=== PATIENT | female | born 1955 | race Caucasian/White ===

== ENCOUNTER 2019-11-01 10:59 | Outpatient (CLI) | payer MEDICARE, MEDICAID, SELFPAY ==
--- NOTE | 2019-11-01 11:28 | XR_ITS ---
WS: [id number] EXAM: LEFT KNEE: 3 VIEWS DATE OF EXAMINATION: 11/01/2019, 1205 hours COMPARISON: None. HISTORY: Patient is 64 years old with knee pain. FINDINGS: Bone density is normal in appearance. No fracture, lytic or blastic process is seen. Minimal enthesop athy reaction at the level of the patellar insertion on the quadriceps tendon superiorly. No joint ef fusion. Extra articular soft tissues are unremarkable. XR/XR knee LT 3V* [id number] IMPRESSION: No acute abnormality. No appreciable arthritis other than enthesopathy reaction at the level of the patellar insertion in the quadriceps tendon.
--- NOTE | 2019-11-01 11:28 | XR_ITS ---
WS: [id number] EXAM: LEFT ELBOW: 3 VIEWS DATE OF EXAMINATION: 11/01/2019, 1202 hours COMPARISON: None. HISTORY: Patient is 64 years old with elbow pain. FINDINGS: Osseous, joint and surrounding soft tissues are unremarkable. If there is concern for tendon or ligam entous abnormality MRI would be the imaging modality of choice for evaluation. XR/XR elbow LT min 3V* [id number] IMPRESSION: Negative plain films of the left elbow.
== END 2019-11-01 11:00 | disposition home or self-care (01) ==
LOC: RADWPI 11:08
PROVIDERS: PCP Nurse Practitioner Family; Visit Provider Nurse Practitioner Family
DX: M25.562 Pain in left knee (principal); M25.522 Pain in left elbow
CPT/HCPCS: 73080; 73562

== ENCOUNTER 2020-05-23 07:32 | Outpatient (CLI) | payer MEDICARE, MEDICAID, SELFPAY ==
--- NOTE | 2020-05-23 07:55 | US_ITS ---
WS: [id number] ULTRASOUND ABDOMEN LIMITED CLINICAL INFORMATION: ELEVATED LIVER FUNCTION TEST COMPARISON: None. FINDINGS: Liver Size: Enlarged Craniocaudal length: 19.8 cm. Echogenicity: Coarse echogenicity Surface nodularity: None. Mass (size and location): None. Bile ducts Intrahepatic ducts: Normal. Common bile duct diameter: 0.7 cm. Gallbladder Cholecystectomy. Pancreas Not well visualized Right kidney: Normal. Hydronephrosis: None. Size: 12.1 cm x 3.9 cm x 5.5 cm. Abdominal aorta and IVC Visualized portions are normal. Ascites: None. US/US abdomen limited [id number] IMPRESSION: 1. Hepatomegaly with mild diffuse fatty infiltration. No intrahepatic biliary ductal dilatation. 2. Prior cholecystectomy. 3. Normal common bile duct. 4. No hydronephrosis in right kidney.
--- NOTE | 2020-05-23 08:52 | XR_ITS ---
WS: [id number] DEXA (DUAL ENERGY X-RAY ABSORPTIOMETRY) Bone mineral density was performed using a [employer] machine. HISTORY: SCREENING FOR OSTEOPOROSIS, POSTMENOPAUSAL COMPARISON: None available. Lumbar spine BMD (L1-L4): 0.969 g/cm2 T score: -1.8 Z score: -1.3 Total hip BMD: Left: 0.916 g/cm2. T score: -0.7 Z score: -0.3 Right: 0.903 g/cm2. T score: -0.8 Z score: -0.4 10 year probability of a major osteoporotic fracture is 16%. XR/XR DEXA axial skeleton* [id number] IMPRESSION: OSTEOPENIA based upon the WHO classification for females.
== END 2020-05-23 07:33 | disposition home or self-care (01) ==
PROVIDERS: PCP Nurse Practitioner Family; Visit Provider Nurse Practitioner Family
DX: Z13.820 Encounter for screening for osteoporosis (principal); R94.5 Abnormal results of liver function studies; M85.88 Other specified disorders of bone density and structure, other site; Z90.49 Acquired absence of other specified parts of digestive tract; R16.0 Hepatomegaly, not elsewhere classified; K76.0 Fatty (change of) liver, not elsewhere classified
CPT/HCPCS: 76705; 77080

== ENCOUNTER 2020-06-06 08:57 | Outpatient (CLI) | payer MEDICARE, MEDICAID, SELFPAY ==
--- NOTE | 2020-06-06 09:01 | MM_ITS ---
WS: [id number] BILATERAL DIGITAL SCREENING MAMMOGRAM WITH CAD CLINICAL INFORMATION: SCREENING HISTORY: Screening mammogram. No current complaints. COMPARISON: TECHNIQUE: Bilateral CC and MLO views. FINDINGS: Fatty-replaced breasts bilaterally. No suspicious focal mass, asymmetry, calcifications, or storage architect ural distortion. No evidence of malignancy. MM/[place] [id number] IMPRESSION: BI-RADS: 1-Negative FOLLOW UP: 1 Year Follow-up Recommend return to annual screening mammography.
== END 2020-06-06 08:58 | disposition home or self-care (01) ==
LOC: RADSHAW 08:58
PROVIDERS: PCP Nurse Practitioner Family; Visit Provider Nurse Practitioner Family
DX: Z12.31 Encounter for screening mammogram for malignant neoplasm of breast (principal)
CPT/HCPCS: 77067

== ENCOUNTER 2021-07-10 06:26 | Day surgery (SDC) | payer MEDICARE, MEDICAID, SELFPAY ==
[2021-07-08 11:09] VITALS: BMI 34.4
[2021-07-10 06:48] VITALS: BP 136/90; PULSE 94; RESP 18; TEMP 36.1; O2SAT 96
--- NOTE | 2021-07-10 07:03 | W.PM.OPSFHP ---
Same Day Surgery H&P Indication for Procedure/HPI DATE OF PROCEDURE: July 10, 2021 CHIEF COMPLAINT/INDICATIONFOR SURGICAL PROCEDURE: Occult blood in stool PREOP DIAGNOSIS: Family history of colon cancer and occult blood in stool PLANNED PROCEDURE: Operation Date: 07/10/21 08:00 Proposed Procedures p Colonoscopy 04175/screen for colon cancer Z12.11(Not Applicable) - Norm Mills MD 11/27/2020 This is a pleasant 65 years old female patient reports that she was found to have occult blood positive in stool and was referred to my practice to discuss colonoscopy.? Patient reports that she had a previous colonoscopy 8 years ago but she does not recall when exactly.? Denies any beena bleeding per rectum and she reports that she had an uncle with colon cancer history but she does not know at what age group that he had developed It. 07/10/2021 Patient comes today for colonoscopy. ROS All systems of all systems have been reviewed negative except as per the above or per problem list Medications/Allergies* Home Medications Medication Instructions Recorded Confirmed Type amlodipine 5 mg tablet 5 mg PO DAILY 11/05/20 07/10/21 History atorvastatin 10 mg tablet 10 mg PO DAILY 11/05/20 07/10/21 History baclofen 10 mg tablet 10 mg PO DAILY 11/05/20 07/10/21 History hydrochlorothiazide 25 mg tablet 25 mg PO DAILY 11/05/20 07/10/21 History insulin glargine 100 unit/mL (3 40 unit SUBCUT BEDTIME 11/05/20 07/10/21 History mL) subcutaneous pen (Lantus Solostar U-100 Insulin) levothyroxine 75 mcg capsule 75 mcg PO DAILY 11/05/20 07/10/21 History lisinopril 40 mg tablet 40 mg PO DAILY 11/05/20 07/10/21 History montelukast 10 mg tablet 10 mg PO DAILY 11/05/20 07/10/21 History mupirocin calcium 2 % topical cream 1 applic TOPICAL BID 11/05/20 07/10/21 History solifenacin 10 mg tablet 10 mg PO DAILY 11/05/20 07/10/21 History triamcinolone acetonide 0.1 % 1 applic TOPICAL DAILY 11/05/20 07/10/21 History topical cream venlafaxine 75 mg tablet 75 mg PO DAILY 11/05/20 07/10/21 History metformin 1,000 mg tablet 1,000 mg PO DAILY 11/27/20 07/10/21 History albuterol sulfate 90 mcg/actuation 2 puff INHALATION QID PRN 01/12/21 07/10/21 History aerosol inhaler alendronate 35 mg tablet 35 mg PO DIRECTED 01/12/21 07/10/21 History aspirin 81 mg tablet,delayed 81 mg PO DAILY 01/12/21 07/10/21 History release cetirizine 10 mg tablet (Zyrtec) 10 mg PO DAILY 01/12/21 07/10/21 History cholecalciferol (vitamin D3) 50 50 mcg PO DAILY 01/12/21 07/10/21 History mcg (2,000 unit) capsule (Vitamin D3) coenzyme Q10 100 mg capsule 100 mg PO DAILY 01/12/21 07/10/21 History (CoQ-10) exenatide microspheres 2 mg/0.85 2 mg SUBCUT DIRECTED 01/12/21 07/10/21 History mL subcutaneous auto-injector (Florentin Schmitz) folic acid 0.8 mg capsule 0.8 mg PO DAILY 01/12/21 07/10/21 History multivitamin 1 cap PO BEDTIME 01/12/21 07/10/21 History omega-3 fatty acids 2,000 mg PO DAILY 01/12/21 07/10/21 History omeprazole 20 mg capsule,delayed 40 mg PO DAILY 01/12/21 07/10/21 History release potassium 99 mg tablet 99 mg PO DAILY 01/12/21 07/10/21 History Allergies/Adverse Reactions Allergy/AdvReac Type Severity Reaction Status Date / Time alprazolam [From Xanax] Allergy Mild BLOATING Verified 07/10/21 07:05 bacitracin Allergy hives Verified 07/10/21 07:05 [From Triple Antibiotic] codeine Allergy esophagus Verified 07/10/21 07:05 muscle spasm morphine Allergy unk Verified 07/10/21 07:05 neomycin Allergy hives Verified 07/10/21 07:05 [From Triple Antibiotic] polymyxin B Allergy hives Verified 07/10/21 07:05 [From Triple Antibiotic] Pertinent History/Comorbid Conditions* Medical History (Updated 11/28/20 @ 12:50 by Norm Mills MD) Depression HTN (hypertension) Hyperlipidemia Social History History of recent travel: No Pertinent Exam Findings alert, oriented x 3, regular rate & rhythm and procedure specific exam findings (Abdominal exam nontender nondistended soft) Recommendations Surgery/Procedure today (colonoscopy with possible biopsy) Coding Level of Care Code Acute Investment Specialist for Susi Gann
[2021-07-10] MEDS: sodium chloride 0.9% 1,000 ML 30 ML IV (07:11)
--- NOTE | 2021-07-10 07:29 | ANES.PREANE2 ---
Pre-Anesthetic Assessment Height/Weight: Height 1.7 m Weight 99.79 kg Temp Pulse Resp BP Pulse Ox 97.0 F L 94 18 136/90 96 07/10/21 06:48 07/10/21 06:48 07/10/21 06:48 07/10/21 06:48 07/10/21 06:48 Preop Diagnosis: Family history of colon cancer and occult blood in stool Operation Date: 07/10/21 08:00 Proposed Procedures p Colonoscopy 61636/screen for colon cancer Z12.11(Not Applicable) - Norm Mills MD Familial anesthetic complications: None Was Beta Amalia taken within 24 hours: N/A Was Clonidine taken within 24 hours: N/A Last intake: Intake Last Liquid Date 07/10/21 Last Liquid Time 06:30 Last Solid Date 07/08/21 Last Solid Time 18:00 Social No alcohol and No tobacco Exam alert, oriented x 3, clear to auscultation bilaterally and regular rate & rhythm Airway Mallampati: Class I Dentition: full Pulmonary None reported CV/HEM Hypertension None reported Hepatic None reported GI Gastroesophageal Reflux Disease Metabolic Diabetes Mellitus, Hyperlipidemia and Morbid Obesity [facility] None reported Neuropsych None reported Anesthetic Plan ASA status: 3 Anesthesia: MAC Risk of > 500 ml blood loss (7ml/kg in children): No Medications/Allergies Home Medications Medication Instructions Recorded Confirmed Last Taken Type amlodipine 5 mg tablet 5 mg PO DAILY 11/05/20 07/10/21 07/09/21 History ammonium lactate 12 % lotion 1 applic TOPICAL DAILY #400 g 11/05/20 07/10/21 07/09/21 Rx atorvastatin 10 mg tablet 10 mg PO DAILY 11/05/20 07/10/21 07/09/21 History baclofen 10 mg tablet 10 mg PO DAILY 11/05/20 07/10/21 07/09/21 History hydrochlorothiazide 25 mg tablet 25 mg PO DAILY 11/05/20 07/10/21 07/09/21 History insulin glargine 100 unit/mL (3 40 unit SUBCUT BEDTIME 11/05/20 07/10/21 07/09/21 History mL) subcutaneous pen (Lantus Solostar U-100 Insulin) ketoconazole 2 % shampoo 1 applic TOPICAL .2 x weekly #120 11/05/20 07/10/21 1 Week Ago Rx ml ~07/03/21 levothyroxine 75 mcg capsule 75 mcg PO DAILY 11/05/20 07/10/21 07/09/21 History lisinopril 40 mg tablet 40 mg PO DAILY 11/05/20 07/10/21 07/09/21 History montelukast 10 mg tablet 10 mg PO DAILY 11/05/20 07/10/21 07/09/21 History mupirocin calcium 2 % topical cream 1 applic TOPICAL BID 11/05/20 07/10/21 07/09/21 History solifenacin 10 mg tablet 10 mg PO DAILY 11/05/20 07/10/21 07/09/21 History triamcinolone acetonide 0.1 % 1 applic TOPICAL DAILY 11/05/20 07/10/21 07/09/21 History topical cream venlafaxine 75 mg tablet 75 mg PO DAILY 11/05/20 07/10/21 07/09/21 History metformin 1,000 mg tablet 1,000 mg PO DAILY 11/27/20 07/10/21 07/09/21 History albuterol sulfate 90 mcg/actuation 2 puff INHALATION QID PRN 01/12/21 07/10/21 1 Month Ago History aerosol inhaler ~06/09/21 alendronate 35 mg tablet 35 mg PO DIRECTED 01/12/21 07/10/21 07/08/21 History aspirin 81 mg tablet,delayed 81 mg PO DAILY 01/12/21 07/10/21 07/09/21 History release cetirizine 10 mg tablet (Zyrtec) 10 mg PO DAILY 01/12/21 07/10/21 07/09/21 History cholecalciferol (vitamin D3) 50 50 mcg PO DAILY 01/12/21 07/10/21 07/09/21 History mcg (2,000 unit) capsule (Vitamin D3) coenzyme Q10 100 mg capsule 100 mg PO DAILY 01/12/21 07/10/21 07/09/21 History (CoQ-10) exenatide microspheres 2 mg/0.85 2 mg SUBCUT DIRECTED 01/12/21 07/10/21 1 Week Ago History mL subcutaneous auto-injector ~07/03/21 (Florentin Schmitz) folic acid 0.8 mg capsule 0.8 mg PO DAILY 01/12/21 07/10/2122 History multivitamin 1 cap PO BEDTIME 01/12/21 07/10/21 07/09/21 History omega-3 fatty acids 2,000 mg PO DAILY 01/12/21 07/10/21 07/09/21 History omeprazole 20 mg capsule,delayed 40 mg PO DAILY 01/12/21 07/10/21 07/09/21 History release potassium 99 mg tablet 99 mg PO DAILY 01/12/21 07/10/21 07/09/21 History lactulose 10 gram/15 mL (15 mL) 15 ml PO BID 7 Days #210 ml 02/20/21 07/10/21 07/09/21 Rx oral solution Allergies Allergy/AdvReac Type Severity Reaction Status Date / Time alprazolam [From Xanax] Allergy Mild BLOATING Verified 07/10/21 07:05 bacitracin Allergy hives Verified 07/10/21 07:05 [From Triple Antibiotic] codeine Allergy esophagus Verified 07/10/21 07:05 muscle spasm morphine Allergy unk Verified 07/10/21 07:05 neomycin Allergy hives Verified 07/10/21 07:05 [From Triple Antibiotic] polymyxin B Allergy hives Verified 07/10/21 07:05 [From Triple Antibiotic] Current Medications Generic Name Dose Route Start Last Admin Trade Name Freq PRN Reason Stop Dose Admin Sodium Chloride 1,000 mls @ 30 mls/hr 07/10/21 06:30 07/10/21 07:11 Sodium Chloride 0.9% IV 30 mls/hr .Q24H ZACHARIAH Administration PFSH Anesthesia Medical History Depression HTN (hypertension) Hyperlipidemia Social History History of recent travel: No Data Anesthesia Cardiac Studies: No Data to Display
[2021-07-10 09:49] VITALS: BP 93/66; PULSE 73; RESP 20; TEMP 36.1; O2SAT 93
[2021-07-10 09:57] VITALS: BP 106/74; PULSE 73; RESP 18; O2SAT 99
--- NOTE | 2021-07-10 15:56 | ANE.PACU2 ---
Inpatient post-anesthesia follow up: Airway intact: Yes Vital signs: Temperature 97 F Pulse Rate 73 Respiratory Rate 18 Blood Pressure 106/74 Pulse Oximetry 99 Oxygen Delivery Me thod Room Air Oxygen Flow Rate Fraction of Inspir ed Oxygen Hydration adequate: Yes Nausea and vomiting: No Pain level: 1 Mental status: Baseline
== END 2021-07-10 10:10 | disposition home or self-care (01) ==
PROVIDERS: Visit Provider Surgery
PROC: 0DJD8ZZ Inspection of Lower Intestinal Tract, Via Natural or Artificial Opening Endoscopic (ICD-10-PCS; CPT 45330; 2021-07-10 08:00)
DX: R19.5 Other fecal abnormalities (principal); K56.41 Fecal impaction; Z80.0 Family history of malignant neoplasm of digestive organs; Z79.82 Long term (current) use of aspirin; Z79.4 Long term (current) use of insulin; F32.9 Major depressive disorder, single episode, unspecified; I10 Essential (primary) hypertension; E78.5 Hyperlipidemia, unspecified; K21.9 Gastro-esophageal reflux disease without esophagitis; E11.9 Type 2 diabetes mellitus without complications; E66.01 Morbid (severe) obesity due to excess calories; Z68.34 Body mass index [BMI] 34.0-34.9, adult
CPT/HCPCS: 45330; J2704; J7030

== ENCOUNTER 2022-12-06 14:03 | Outpatient (CLI) | payer MEDICARE, MEDICAID, SELFPAY ==
--- NOTE | 2022-12-06 14:13 | MM_ITS ---
WS: [id number] BILATERAL 3D TOMOSYNTHESIS DIGITAL SCREENING MAMMOGRAPHY WITH CAD CLINICAL INFORMATION: SCREENING HISTORY: Screening mammogram. No current complaints. COMPARISON: 2020 TECHNIQUE: Bilateral CC and MLO views. FINDINGS: Scattered fibroglandular densities bilaterally. No suspicious focal mass, asymmetry, calcifications, or architectural distortion. No evidence of malignancy. IMPRESSION: MM/[place] [id number] BI-RADS: 1-Negative FOLLOW UP: 1 Year Follow-up Recommend return to annual screening mammography.
--- NOTE | 2022-12-06 14:14 | CT_ITS ---
WS: [id number] CT ABDOMEN AND PELVIS NONCONTRAST HISTORY: ABDOMINAL PAIN TECHNIQUE: Imaging performed through the abdomen and pelvis. Coronal and sagittal reformats are submi tted. All CT scans at [facility] use at least one of these dose optimization techniques: auto mated exposure control; mA and/or kV adjustment per patient size (includes targeted exams where dose is matched to clinical indication); or iterative reconstruction. DLP: 722.73 mGy.cm COMPARISON: 03/29/2018 Lower thorax: Lung bases are clear. Visualized heart is normal. No hiatal hernia. Liver: Mildly enlarged liver. Area of decreased attenuation in the LEFT lobe of the liver with ill-de fined margins measures 4.8 x 4.8 cm. The remaining liver is negative. No intrahepatic dilatation. Gallbladder: Prior cholecystectomy. Pancreas: Normal size and attenuation. Normal pancreatic duct. No pancreatitis or mass. Spleen: Normal size with granulomata. Adrenal glands: Normal. No mass. Right kidney: 5 mm exophytic nodule from the superior lateral RIGHT kidney. Not significantly changed since the prior exam. No obstruction or calcifications. Left kidney: Normal size kidney with no mass or hydronephrosis. Aorta: Mild atherosclerosis abdominal aorta with no aneurysm. No free fluid or free air. There are several small lymph nodes in the mesentery of the upper abdomen adjacent to the transverse colon and hepatic flexure. GI tract: Soft tissue mass with circumferential thickening involving the proximal transverse colon. T here is a focal stricture extending over a length of 8 cm with moderate narrowing of the lumen. Adjac ent lymph nodes within the pericolonic fat. This is consistent with a neoplasm until proven otherwise . Diffuse colonic constipation. Constipation is both proximal and distal to the transverse colon stri cture. Abdominal wall: Negative. No hernia. Pelvis: Prior hysterectomy. No free fluid. Osseous structures: Stable lytic area LEFT ilium. IMPRESSION: 1. Circumferential mass in the proximal transverse colon with stricture. Most consistent with coloni c neoplasm until proven otherwise. Recommend colonoscopy. 2. Pericolonic inflammation and soft tissue infiltration surrounding the mass in the proximal transv erse colon suspect metastatic adenopathy. 3. Low-attenuation mass in the LEFT lobe of the liver measures 4.8 x 4.8 cm. Highly suspicious for m etastatic disease to the liver. 4. Diffuse colonic constipation. 5. Recommend colonoscopy and follow-up CT abdomen and pelvis with IV contrast. PET/CT would also be of benefit at this time. Notified Lanny Pitts NP at 12/07/2022 8:00 AM.
[2022-12-06] MEDS: iohexol 350 mg/mL 500 mL Btl (per mL) PO (15:09)
== END 2022-12-06 14:04 | disposition home or self-care (01) ==
PROVIDERS: PCP Nurse Practitioner Family; Visit Provider Nurse Practitioner Family
DX: Z12.31 Encounter for screening mammogram for malignant neoplasm of breast (principal); R10.9 Unspecified abdominal pain; D50.9 Iron deficiency anemia, unspecified; R11.0 Nausea
CPT/HCPCS: 74176; 77063; 77067; Q9967

== ENCOUNTER → 2023-02-22 08:01 | Outpatient (BNVA) | payer MEDICARE, MEDICAID, SELFPAY | PROVIDERS: PCP Nurse Practitioner Family; Visit Provider Surgery | DX: Z95.828 Presence of other vascular implants and grafts (principal) | CPT/HCPCS: 99204 ==

== ENCOUNTER 2023-02-25 09:44 | Day surgery (SDC) | payer MEDICARE, MEDICAID, SELFPAY ==
[2023-02-25] VITALS (7 sets, daily range): BP systolic 97–123; BP diastolic 59–70; PULSE 87–91; RESP 16–18; TEMP 36.1–36.6; O2SAT 93–99; BMI 29.5
--- NOTE | 2023-02-25 09:54 | SC_ITS ---
WS: [id number] C-arm fluoroscopy for infusion port placement, 02/25/2023 Clinical Data: for port-a-cath Comparison: AP chest, 03/29/2018 Findings: Dr. Jean inserted an infusion port via the right internal jugular vein. The port ends in the mi d superior vena cava. Impression: Insertion of right infusion catheter.
[2023-02-25 10:45] LABS: Glucose Point of Care 193 mg/dL (70-110)
--- NOTE | 2023-02-25 10:47 | ANES.PREANE2 ---
Pre-Anesthetic Assessment Height/Weight: Height 1.73 m Temp Pulse Resp BP Pulse Ox O2 Del Method 97.9 F 89 18 97/70 98 Room Air 02/25/23 10:20 02/25/23 10:20 02/25/23 10:20 02/25/23 10:20 02/25/23 10:20 02/25/23 10:22 Operation Date: 02/25/23 12:00 Proposed Procedures p 42898:Portacath Placement,C18.9(Not Applicable) - Nasir Jean MD Familial anesthetic complications: None Was Beta Amalia taken within 24 hours: N/A Was Clonidine taken within 24 hours: N/A Last intake: Intake Last Liquid Date 02/24/23 Last Liquid Time 20:00 Last Solid Date 02/24/23 Last Solid Time 20:00 Social No alcohol and No tobacco Exam alert, oriented x 3, clear to auscultation bilaterally and regular rate & rhythm Airway Mallampati: Class II Dentition: false CV/HEM Hypertension GI Gastroesophageal Reflux Disease Metabolic Diabetes Mellitus, Hyperlipidemia, Morbid Obesity and Thyroid Disease Anesthetic Plan ASA status: 3 Anesthesia: MAC Risk of > 500 ml blood loss (7ml/kg in children): No Medications/Allergies Home Medications Medication Instructions Recorded Confirmed Last Taken Type amlodipine 5 mg tablet 5 mg PO DAILY 11/05/20 02/24/23 02/24/23 History ammonium lactate 12 % lotion 1 applic topical DAILY #400 grams 11/05/20 02/24/23 07/09/21 Rx atorvastatin 10 mg tablet 10 mg PO DAILY 11/05/20 02/24/23 02/25/23 08:30 History hydrochlorothiazide 25 mg tablet 25 mg PO DAILY 11/05/20 02/24/23 02/25/23 08:30 History insulin glargine 100 unit/mL (3 40 unit SUBCUT BEDTIME 11/05/20 02/24/23 02/25/23 08:30 History mL) subcutaneous pen (Lantus Solostar U-100 Insulin) ketoconazole 2 % shampoo 1 applic topical .2 x weekly #120 11/05/20 02/24/23 1 Week Ago Rx mL ~07/03/21 levothyroxine 75 mcg capsule 75 mcg PO DAILY 11/05/20 02/24/23 02/24/23 History lisinopril 40 mg tablet 40 mg PO DAILY 11/05/20 02/24/23 02/24/23 History montelukast 10 mg tablet 10 mg PO DAILY 11/05/20 02/24/23 02/24/23 20:00 History mupirocin calcium 2 % topical cream 1 applic topical BID 11/05/20 02/24/23 07/09/21 History solifenacin 10 mg tablet 10 mg PO DAILY 11/05/20 02/24/23 02/25/23 08:30 History triamcinolone acetonide 0.1 % 1 applic topical DAILY 11/05/20 02/24/23 02/24/23 History topical cream albuterol sulfate 90 mcg/actuation 2 puff inhalation QID PRN 01/12/21 02/25/23 01/20/23 History aerosol inhaler Shortness Of Breath alendronate 35 mg tablet 35 mg PO DIRECTED 01/12/21 02/25/23 02/11/23 History aspirin 81 mg tablet,delayed 81 mg PO DAILY 01/12/21 02/24/23 02/24/23 History release cetirizine 10 mg tablet (Zyrtec) 10 mg PO DAILY 01/12/21 02/24/23 02/25/23 08:30 History cholecalciferol (vitamin D3) 50 50 mcg PO DAILY 01/12/21 02/24/23 02/25/23 08:30 History mcg (2,000 unit) capsule (Vitamin D3) coenzyme Q10 100 mg capsule 100 mg PO DAILY 01/12/21 02/24/23 02/25/23 08:30 History (CoQ-10) exenatide microspheres 2 mg/0.85 2 mg SUBCUT DIRECTED 01/12/21 02/25/23 02/11/23 History mL subcutaneous auto-injector (Florentin Schmitz) folic acid 0.8 mg capsule 0.8 mg PO DAILY 01/12/21 02/24/23 02/25/23 08:30 History multivitamin 1 cap PO BEDTIME 01/12/21 02/24/23 02/23/23 History omega-3 fatty acids 2,000 mg PO DAILY 01/12/21 02/24/23 02/24/23 History potassium 99 mg tablet 99 mg PO DAILY 01/12/21 02/24/23 02/25/23 08:30 History Freestyle Kit Sensor 02/15/23 02/22/23 Unknown History fluticasone propionate 50 1 spray intranasal BID 02/15/23 02/25/23 02/11/23 History mcg/actuation nasal spray,suspension (Allergy Relief (fluticasone)) magnesium oxide 250 mg PO DAILY 02/15/23 02/24/23 Unknown History omeprazole 20 mg capsule,delayed 40 mg PO BID 02/15/23 02/24/23 02/25/23 08:30 History release sitagliptin phosphate 25 mg tablet 25 mg PO DAILY 02/15/23 02/24/23 02/25/23 08:30 History (Januvia) venlafaxine 75 mg tablet 150 mg PO DAILY 02/15/23 02/24/23 02/25/23 08:30 History Allergies Allergy/AdvReac Type Severity Reaction Status Date / Time nitrofurantoin Allergy Severe ALGY-Rash Verified 02/22/23 08:08 [From Macrobid] alprazolam [From Xanax] Allergy Mild BLOATING Verified 02/22/23 08:08 bacitracin Allergy hives Verified 02/22/23 08:08 [From Triple Antibiotic] codeine Allergy esophagus Verified 02/22/23 08:08 muscle spasm morphine Allergy unk Verified 02/22/23 08:08 neomycin Allergy hives Verified 02/22/23 08:08 [From Triple Antibiotic] polymyxin B Allergy hives Verified 02/22/23 08:08 [From Triple Antibiotic] [facility] Anesthesia Medical History (Updated 02/15/23 @ 09:12 by iFnesse Bundy MD) Metastatic colon cancer to liver Hyperlipidemia HTN (hypertension) Depression Family History (Updated 12/23/22 @ 11:41 by Juliane Villarreal) Denies family history of Colon cancer Ovarian cancer Diabetes Heart disease Hyperlipidemia Breast cancer Hypertension Uterine cancer Thyroid disease Stroke Social History (Updated 02/15/23 @ 09:15 by Jaskaran Nolasco) Smoking and tobacco/nicotine status: never used tobacco/nicotine Quit status (tobacco/nicotine): has quit using Year quit tobacco: 2002 Former quit date comment: smoked 30 years Data Anesthesia Cardiac Studies: No Data to Display
--- NOTE | 2023-02-25 10:48 | P.HPUD_ITS ---
Surgery/Procedure H&P Update DATE OF PROCEDURE: February 25, 2023 DATE H&P PERFORMED: 02/22/23 H&P UPDATE INFORMATION: I have reviewed H&P completed within last 30 days, I have examined patient prior to procedure, No changes to prior documentation and H&P is in [facility] EMR on date indicated PLANNED PROCEDURE: Operation Date: 02/25/23 12:00 Proposed Procedures p 30531:Portacath Placement,C18.9(Not Applicable) - Nasir Jean MD
--- NOTE | 2023-02-25 10:48 | W.PM.OPSUD ---
Surgery/Procedure H&P Update DATE OF PROCEDURE: February 25, 2023 DATE H&P PERFORMED: 02/22/23 H&P UPDATE INFORMATION: I have reviewed H&P completed within last 30 days, I have examined patient prior to procedure, No changes to prior documentation and H&P is in [facility] EMR on date indicated PLANNED PROCEDURE: Operation Date: 02/25/23 12:00 Proposed Procedures p 13854:Portacath Placement,C18.9(Not Applicable) - Nasir Jean MD
[2023-02-25] MEDS: sodium chloride 0.9% 1,000 ML 30 ML IV (10:59)
[2023-02-25] MEDS: ceFAZolin 2,000 MG in sodium chloride 0.9% (plus) 50 ML 100 MG IV (11:05)
[2023-02-25] MEDS: lidocaine-epi 1% 20 mL INJ INJECTION (11:26)
[2023-02-25] MEDS: heparin, porcine 1,000 unit/mL INJ 10 mL 10000 UNIT IRRIGATION (11:27)
--- NOTE | 2023-02-25 11:47 | PM.OP ---
Operative Report Date of procedure: February 25, 2023 Pre-op diagnosis: Colon cancer Post-op diagnosis: Same Post-op findings: Normal vascular anatomy Procedure done: Insertion of Port-A-Cath Implants: Bard Port-A-Cath Surgeon: Nasir Jean MD [employer] Lieutenant: LORNA OR STaff Estimated blood loss: 5 Complications: None Brief History: 67-year-old female with history of metastatic colon cancer s/p resection patient will require Port-A-Cath for chemotherapy. After discussing all the risk and benefits as documented in my preop note we have decided to proceed with Port-A-Cath placement. Procedure: The patient was brought into the OR, she was placed in the supine position. Moderate anesthesia sedation was given. The right side of the neck and chest was prepped and draped in the usual sterile fashion. Timeout was conducted. The right IJ vein was identified with ultrasound local anesthesia was infiltrated on top of the vein. I then proceeded to cannulate the vein with a 18-gauge needle the needle tip was seen entering the vein under ultrasound visualization, after that I proceeded to advance a wire through the needle and the needle was removed. The position of the wire was verified with both ultrasound and fluoroscopy. There was a wire was then clamped to the drapes and I placed my attention to the chest where I made a 3.5 cm incision on the upper chest, the incision was deepened to subcutaneous tissue and a subcutaneous pocket was then created to accommodate the Port-A-Cath. I made a 0.5 cm incisions on the neck at the level of the wire insertion site. I then used a hemostat to create a tunnel between the chest and neck wounds, the Port-A-Cath was placed in the pocket and the tunneler provided was used to tunneled the catheter from the chest to the neck wound. Under direct fluoroscopy guidance I then advanced introducer and peel-off sheath over the wire, the introducer and wire were subsequently removed. The catheter was advanced through the peel-off sheath and the peel-off sheath was removed leaving the catheter in place. Fluoroscopy showed successful placement of the Port-A-Cath. I then proceeded to test for blood return and flushing, the Port-A-Cath was noted to be working well and then I hep-locked the catheter. Hemostasis was verified. The wounds were closed in layers using #3-0 Vicryl for the subcutaneous tissue and #4 Monocryl for the skin. At the end of the procedure all counts were correct. The patient was transferred to the PACU in stable condition.
--- NOTE | 2023-02-25 14:49 | ANE.PACU2 ---
Inpatient post-anesthesia follow up: Airway intact: Yes Vital signs: Temperature 97.7 F Pulse Rate 87 Respiratory Rate 17 Blood Pressure 114/69 Pulse Oximetry 99 Oxygen Delivery Me thod Room Air Oxygen Flow Rate Fraction of Inspir ed Oxygen Hydration adequate: Yes Nausea and vomiting: No Pain level: 1 Mental status: Baseline
== END 2023-02-25 12:50 | disposition home or self-care (01) ==
PROVIDERS: PCP Nurse Practitioner Family; Visit Provider Surgery
PROC: (CPT 36561; principal; 2023-02-25 12:00)
DX: C18.9 Malignant neoplasm of colon, unspecified (principal); Z90.49 Acquired absence of other specified parts of digestive tract; I10 Essential (primary) hypertension; K21.9 Gastro-esophageal reflux disease without esophagitis; E11.9 Type 2 diabetes mellitus without complications; E78.5 Hyperlipidemia, unspecified; E66.01 Morbid (severe) obesity due to excess calories; Z68.29 Body mass index [BMI] 29.0-29.9, adult; Z87.891 Personal history of nicotine dependence
CPT/HCPCS: 36561; 36416; 76000; 77001; 82962; C1788; J0690; J1644; J2704; J3010; J7030

== ENCOUNTER 2023-03-03 11:32 | Outpatient (CLI) | payer MEDICARE, MEDICAID, SELFPAY ==
[2023-03-03] MEDS: iohexol 350 mg/mL 500 mL Btl (per mL) PO (11:51)
--- NOTE | 2023-03-03 12:30 | CT_ITS ---
WS: [id number] CT CHEST, ABDOMEN AND PELVIS WITH CONTRAST HISTORY: colon cancer, history of RIGHT hemicolectomy with partial omentectomy and LEFT lateral hepat ectomy. TECHNIQUE: Contiguous 5 mm axial imaging performed through the chest, abdomen and pelvis with IV cont rast, oral contrast has been provided. Coronal and sagittal reformats chest. Coronal and sagittal ref ormats through the abdomen and pelvis. All CT scans at [facility] use at least one of these d ose optimization techniques: automated exposure control; mA and/or kV adjustment per patient size (in cludes targeted exams where dose is matched to clinical indication); or iterative reconstruction. CONTRAST: Omnipaque 350; 100 mL IV. DLP: 1100.58 mGy.cm COMPARISON: 12/06/[address]: No pulmonary mass, pneumonia or nodules. Mild paraseptal emphysema. RIGHT subclavian Medipo rt. No mediastinal or hilar adenopathy. Heart size is normal. No pericardial or pleural effusions. Abdomen CT: Status post LEFT hepatectomy. The remaining liver is negative. No metastatic lesions are identified within the liver. Postsurgical changes of omental necrosis are noted at the hepatectomy si te. Gallbladder is been removed. Negative pancreas and spleen. No adrenal mass. Too small to characte rize hypodensities in the lower pole of the RIGHT kidney. No solid mass or renal obstruction. Mild at herosclerosis aorta. Patient is status post RIGHT hemicolectomy. Surgical anastomosis is noted within the LEFT upper quadr ant. There is some very minimal soft tissue thickening involving the small bowel near the anastomosis for which follow-up can be obtained. No discrete mass identified. The remaining colon demonstrates m oderate constipation and fecal retention. There is a large fluid collection centered in the mesentery extending over a transverse diameter of 2 0.0 cm and superior-inferior by 10.8 cm. Predominately simple fluid collection but there is mass effe ct upon the posterior stomach and also the pancreas and the adjacent colon. Mass extends to the LEFT paracolic gutter at the site of the surgery. There is a soft tissue nodule associated with the LEFT l ateral aspect of this large fluid collection along the paracolic gutter. There are several soft tissu e nodules extending over a length of 3.5 x 1.4 cm for which metastatic deposits cannot be excluded. T his all may be postsurgical. There is an omental fluid collection measuring 4.6 x 2.5 cm along the LE FT lateral abdominal wall near the surgical anastomosis. Additional mild omental thickening anterior to the stomach. For there is an additional collection at the site of the LEFT hepatectomy which is pr obably related to the hepatectomy. Pelvic CT: Well-distended urinary bladder. Prior hysterectomy. No free fluid or adenopathy. IMPRESSION: 1. Since the prior examination patient's undergone a RIGHT hemicolectomy and the LEFT lateral hepatec myra. 2. Postsurgical changes in the RIGHT abdomen at the site of the hepatectomy and omentectomy. Favor th nixon changes in the omentum are all related to the surgery and will resolve over time. 3. There is a large fluid collection centered in the abdomen measuring 20.0 x 10.8 cm. Causing slight mass effect upon the stomach and the surrounding structures. This may be a benign postoperative jonas ection. There is no air or adjacent inflammation. There is slight nodularity in continuity with this collection extending along the LEFT paracolic gutter for which metastatic deposits are not excluded. Recommend short-term follow-up. Additional omental nodules are identified which can be followed in [address] abdomen pelvis with IV and oral contrast follow-up in 3 months. These fluid collections, nodule and omental collections can be reevaluated in 3 months. 4. No ascites. 5. No metastatic pulmonary nodules.
[2023-03-03] MEDS: iohexol 350 mg/mL 500 mL Btl (per mL) IV (12:39)
== END 2023-03-03 11:33 | disposition home or self-care (01) ==
LOC: RAD 11:33
PROVIDERS: PCP Nurse Practitioner Family; Visit Provider Internal Medicine Medical Oncology
DX: C18.9 Malignant neoplasm of colon, unspecified (principal); C78.7 Secondary malignant neoplasm of liver and intrahepatic bile duct; Z90.49 Acquired absence of other specified parts of digestive tract
CPT/HCPCS: 71260; 74177; Q9967

== ENCOUNTER 2023-03-11 11:00 | Oncology outpatient (recurring) (ONCR) | payer MEDICARE, MEDICAID, SELFPAY ==
[2023-02-15 11:14] LABS: Basophils % 0.3 %; Eosinophils # 0.6 10^3/uL (0.0-0.8); Eosinophils % 6.3 %; Lymphocytes # 1.3 10^3/uL (0.8-4.8); Lymphocytes % 14.5 %; Mean Corpuscular HGB Conc 28.2 g/dL (30-55); Mean Corpuscular Volume 74.5 fl (85-98); Mean Platelet Volume 10.6 fL (7.4-10.4); Monocytes # 0.3 10^3/uL (0.2-0.9); Monocytes % 3.3 %; Neutrophils # 6.61 10^3/uL (1.8-7.7); Neutrophils % 75.3 %; Nucleated Red Blood Cells % 0 %; Platelet Count 364 10^3/cmm (157-399); Red Blood Count 4.43 10^6/uL (3.85-5.65); Red Cell Distribution Width 16.7 % (12.1-15.1); White Blood Count 8.78 10^3/uL (3.29-11.43)
[2023-02-15 11:38] LABS: Alanine Aminotransferase 10 U/L (0-33); Albumin Level 4.2 g/dL (3.5-5.2); Alkaline Phosphatase 82 U/L (35-105); Anion Gap 17.4 (5-19); Aspartate Amino Transferase 18 U/L (0-32); Blood Urea Nitrogen 18 mg/dL (8-23); Calcium 9.2 mg/dL (8.5-10.5); Carbon Dioxide 22 mmol/L (22-29); Chloride 100 mmol/L (98-107); Ferritin 19 ng/mL (15-150); Globulin 3.7 g/dL (1.3-4.6); Glucose 165 mg/dL (65-115); Iron 25 ug/dL (37-145); Osmolality Calculated 288 mOsm/kg (285-295); Percent Saturation 5.4 % (20-50); Potassium 3.4 mmol/L (3.5-5.1); Sodium 136 mmol/L (136-145); Total Bilirubin 0.2 mg/dL (0.15-1.2); Total Iron Binding Capacity 455 mcg/dl; Total Protein 7.9 g/dL (6.6-8.7); Unsaturated Iron Binding 430 ug/dL (112-347)
[2023-02-15 11:54] LABS: Vitamin B12 375 pg/mL (232-1245)
[2023-02-15 12:51] LABS: Folate Level > 20.0 ng/mL (4.8-37.3)
[2023-02-15 13:16] LABS: Carcinoembryonic Antigen 2.3 ng/mL (0.0-4.7)
[2023-02-17 17:30] LABS: Soluble Transferrin Receptor 3.22 mg/L (0.76-1.76)
[2023-02-18 08:09] LABS: Methylmalonic Acid 250 nmol/L (87-318)
[2023-03-09 09:32] VITALS: BMI 29.2
[2023-03-09 09:33] VITALS: BP 114/73; PULSE 86; RESP 16; TEMP 36.6; O2SAT 99
[2023-03-09] MEDS: iron sucrose 200 MG in sodium chloride 0.9% (100 ml) 100 ML 220 MG IV (10:24)
[2023-03-09] MEDS: sodium chloride 0.9% 250 ML 75 ML IV (10:24)
[2023-03-09] MEDS: palonosetron 0.25 mg/5 mL SDV IVP (10:24)
[2023-03-09] MEDS: bevacizumab-awwb 400 MG, bevacizumab-awwb 40 MG in sodium chloride 0.9% (100 ml) 100 ML 75 MG IV (11:28)
[2023-03-09] MEDS: oxaliplatin 100 MG, oxaliplatin 70 MG in dextrose 5% 250 ML 142 MG IV (13:05)
[2023-03-09] MEDS: leucovorin 800 MG in dextrose 5% 250 ML 82.5 MG IV (13:05)
[2023-03-09] MEDS: fluorouraciL 4,800 MG, elastomeric pump 1 PUMP in sodium chloride 0.9% (100 ml) 0 ML IV (15:23)
[2023-03-11 11:15] VITALS: BP 118/64; PULSE 89; RESP 18; O2SAT 99
== END 2023-03-13 23:59 | disposition home or self-care (01) ==
PROVIDERS: PCP Nurse Practitioner Family; Visit Provider Internal Medicine
DX: Z53.9 Procedure and treatment not carried out, unspecified reason (principal); Z45.1 Encounter for adjustment and management of infusion pump
CPT/HCPCS: 36415; 80053; 82378; 82607; 82728; 82746; 83540; 83550; 83921; 84238; 85025; 96365; 96367; 96374; 96375; 96413; 96415; 96416; 96417; 96523; 99205; 99215; J0640; J1100; J1642; J1756; J2469; J7050; J7060; J9190; J9263; Q5107

== ENCOUNTER 2023-04-13 08:18 | Oncology outpatient (recurring) (ONCR) | payer MEDICARE, MEDICAID, SELFPAY ==
[2023-03-17 07:57] VITALS: BP 112/74; PULSE 92; RESP 17; TEMP 35.9; O2SAT 98
[2023-03-17] MEDS: sodium chloride 0.9% 250 ML 75 ML IV (08:15)
[2023-03-17] MEDS: iron sucrose 200 MG in sodium chloride 0.9% (100 ml) 100 ML 220 MG IV (08:40)
[2023-03-17 09:35] VITALS: BP 111/71; PULSE 80; RESP 17; TEMP 35.9; O2SAT 97
[2023-03-23 08:20] VITALS: BP 136/74; PULSE 93; RESP 16; TEMP 35.8; O2SAT 98
[2023-03-23 08:41] LABS: Add Urine Microscopic? YES; Bilirubin Urine Neg (Negative); Blood Urine Neg (Negative); Glucose Urine UA Norm (Normal); Ketones Urine Negative (Negative); Leukocyte Esterase Urine 2+ (Negative); Nitrate Urine Negative (Negative); Protein Urine Neg (Negative); Specific Gravity, Urine 1.025 (1.005-1.030); Urine Appearance SL Hazy (CLEAR); Urine Color Yellow (Yellow); Urobilinogen Urine Norm (Negative); pH Urine 6 (5-7)
[2023-03-23 08:43] LABS: Basophils % 0.5 %; Eosinophils # 0.6 10^3/uL (0.0-0.8); Eosinophils % 10.8 %; Hematocrit 31.7 % (36-47); Lymphocytes # 1.2 10^3/uL (0.8-4.8); Lymphocytes % 20.9 %; Mean Corpuscular HGB Conc 28.7 g/dL (30-55); Mean Corpuscular Volume 73.2 fl (85-98); Mean Platelet Volume 9.8 fL (7.4-10.4); Monocytes # 0.5 10^3/uL (0.2-0.9); Monocytes % 7.7 %; Neutrophils % 59.9 %; Nucleated Red Blood Cells % 0 %; Platelet Count 222 10^3/cmm (157-399); Red Blood Count 4.33 10^6/uL (3.85-5.65); Red Cell Distribution Width 21.1 % (12.1-15.1); White Blood Count 5.84 10^3/uL (3.29-11.43)
[2023-03-23 08:51] LABS: RBC Urine 0-4 /hpf (0-2); Squamous Epithelial Cell Urine 0-4 /hpf (0-5)
[2023-03-23 08:52] LABS: Bacteria Urine TRACE /hpf; Mucus Urine 1+ /hpf; Renal Epithelial Cells Urine 2 /hpf
[2023-03-23 08:54] LABS: Add Urine Culture? No
[2023-03-23 08:59] LABS: Alanine Aminotransferase 10 U/L (0-33); Albumin Level 3.7 g/dL (3.5-5.2); Alkaline Phosphatase 72 U/L (35-105); Aspartate Amino Transferase 17 U/L (0-32); Blood Urea Nitrogen 16 mg/dL (8-23); Calcium 9.3 mg/dL (8.5-10.5); Carbon Dioxide 28 mmol/L (22-29); Chloride 103 mmol/L (98-107); Globulin 3.1 g/dL (1.3-4.6); Glomerular Filtration Rate 71.1 mL/min (90-130); Glucose 234 mg/dL (65-115); Osmolality Calculated 299 mOsm/kg (285-295); Sodium 140 mmol/L (136-145); Total Bilirubin 0.2 mg/dL (0.15-1.2); Total Protein 6.8 g/dL (6.6-8.7)
[2023-03-23] MEDS: sodium chloride 0.9% 250 ML 75 ML IV (09:56)
[2023-03-23] MEDS: iron sucrose 200 MG in sodium chloride 0.9% (100 ml) 100 ML 220 MG IV (10:04)
[2023-03-23 11:00] VITALS: BP 124/80; PULSE 80; RESP 17; TEMP 36.7; O2SAT 98
[2023-03-25 08:44] VITALS: BP 117/78; PULSE 85; RESP 18; TEMP 36.6; O2SAT 96
[2023-03-25] MEDS: iron sucrose 200 MG in sodium chloride 0.9% (100 ml) 100 ML 220 MG IV (09:28)
[2023-03-30 08:36] VITALS: BP 120/73; PULSE 84; RESP 18; TEMP 36.9; O2SAT 98
[2023-03-30 08:40] LABS: Basophils # 0.1 10^3/uL (0.0-0.1); Basophils % 1.4 %; Eosinophils # 0.7 10^3/uL (0.0-0.8); Eosinophils % 15.6 %; Hematocrit 34.6 % (36-47); Lymphocytes # 1.2 10^3/uL (0.8-4.8); Mean Corpuscular HGB Conc 29.5 g/dL (30-55); Mean Corpuscular Hemoglobin 22.3 pg (27-33); Mean Corpuscular Volume 75.5 fl (85-98); Mean Platelet Volume 9.4 fL (7.4-10.4); Monocytes # 0.5 10^3/uL (0.2-0.9); Monocytes % 11.8 %; Neutrophils # 1.93 10^3/uL (1.8-7.7); Neutrophils % 43.7 %; Nucleated Red Blood Cells % 0 %; Platelet Count 332 10^3/cmm (157-399); Red Blood Count 4.58 10^6/uL (3.85-5.65); Red Cell Distribution Width 24.5 % (12.1-15.1); White Blood Count 4.41 10^3/uL (3.29-11.43)
[2023-03-30 08:58] LABS: Bilirubin Urine Neg (Negative); Blood Urine Neg (Negative); Glucose Urine UA Norm (Normal); Ketones Urine Negative (Negative); Nitrate Urine Negative (Negative); Protein Urine Neg (Negative); Urine Appearance Clear (CLEAR); Urine Color Yellow (Yellow); Urobilinogen Urine 1 mg/dL (Negative); pH Urine 6 (5-7)
[2023-03-30 08:59] LABS: Leukocyte Esterase Urine 1+ (Negative)
[2023-03-30 09:08] LABS: Add Urine Culture? No; Bacteria Urine TRACE /hpf; Mucus Urine 1+ /hpf; Squamous Epithelial Cell Urine 0-4 /hpf (0-5); WBC Urine 0-4 /hpf (0-5)
[2023-03-30 09:18] LABS: Alanine Aminotransferase 21 U/L (0-33); Albumin Level 3.9 g/dL (3.5-5.2); Alkaline Phosphatase 77 U/L (35-105); Anion Gap 14.3 (5-19); Aspartate Amino Transferase 27 U/L (0-32); Blood Urea Nitrogen 18 mg/dL (8-23); Calcium 8.5 mg/dL (8.5-10.5); Carbon Dioxide 25 mmol/L (22-29); Chloride 106 mmol/L (98-107); Globulin 3.1 g/dL (1.3-4.6); Glomerular Filtration Rate 62.1 mL/min (90-130); Glucose 150 mg/dL (65-115); Iron 65 ug/dL (37-145); Osmolality Calculated 297 mOsm/kg (285-295); Percent Saturation 20.3 % (20-50); Potassium 4.3 mmol/L (3.5-5.1); Sodium 141 mmol/L (136-145); Total Bilirubin 0.2 mg/dL (0.15-1.2); Total Iron Binding Capacity 320 mcg/dl; Unsaturated Iron Binding 255 ug/dL (112-347)
[2023-03-30] MEDS: sodium chloride 0.9% (100 ml) 100 ML 75 ML (10:38)
[2023-03-30] MEDS: iron sucrose 200 MG in sodium chloride 0.9% (100 ml) 100 ML 220 MG IV (10:39)
[2023-03-30] MEDS: palonosetron 0.25 mg/5 mL SDV IVP (11:24)
[2023-03-30] MEDS: bevacizumab-awwb 400 MG, bevacizumab-awwb 40 MG in sodium chloride 0.9% (100 ml) 100 ML 120 MG IV (11:54)
[2023-03-30] MEDS: oxaliplatin 100 MG, oxaliplatin 70 MG in dextrose 5% 250 ML 142 MG IV (13:10)
[2023-03-30] MEDS: leucovorin 800 MG in dextrose 5% 250 ML 82.5 MG IV (13:10)
[2023-03-30] MEDS: dextrose 5% 250 ML 75 ML IV (13:20)
[2023-03-30] MEDS: fluorouraciL 3,850 MG, elastomeric pump 1 PUMP in sodium chloride 0.9% (100 ml) 15 ML IV (15:42)
[2023-03-30 15:50] VITALS: BP 140/75; PULSE 86; RESP 15; TEMP 36.6; O2SAT 95
[2023-04-01 08:43] VITALS: BP 139/82; PULSE 88; RESP 16; TEMP 36.8; O2SAT 99
[2023-04-13 09:07] LABS: Basophils # 0.1 10^3/uL (0.0-0.1); Basophils % 0.7 %; Eosinophils # 0.6 10^3/uL (0.0-0.8); Eosinophils % 8.6 %; Hematocrit 36.7 % (36-47); Lymphocytes # 1.3 10^3/uL (0.8-4.8); Lymphocytes % 18.1 %; Mean Corpuscular HGB Conc 31.1 g/dL (30-55); Mean Corpuscular Hemoglobin 23.7 pg (27-33); Mean Corpuscular Volume 76.1 fl (85-98); Mean Platelet Volume 10.1 fL (7.4-10.4); Monocytes # 0.6 10^3/uL (0.2-0.9); Monocytes % 7.7 %; Neutrophils # 4.78 10^3/uL (1.8-7.7); Neutrophils % 64.6 %; Nucleated Red Blood Cells % 0 %; Platelet Count 219 10^3/cmm (157-399); Red Blood Count 4.82 10^6/uL (3.85-5.65); Red Cell Distribution Width 25.5 % (12.1-15.1)
[2023-04-13 09:25] LABS: Alanine Aminotransferase 21 U/L (0-33); Albumin Level 3.9 g/dL (3.5-5.2); Alkaline Phosphatase 90 U/L (35-105); Anion Gap 13.8 (5-19); Aspartate Amino Transferase 15 U/L (0-32); Blood Urea Nitrogen 21 mg/dL (8-23); Calcium 9.1 mg/dL (8.5-10.5); Carbon Dioxide 27 mmol/L (22-29); Chloride 102 mmol/L (98-107); Globulin 3.5 g/dL (1.3-4.6); Glomerular Filtration Rate 62.1 mL/min (90-130); Glucose 178 mg/dL (65-115); Osmolality Calculated 295 mOsm/kg (285-295); Potassium 3.8 mmol/L (3.5-5.1); Sodium 139 mmol/L (136-145); Total Bilirubin 0.2 mg/dL (0.15-1.2); Total Protein 7.4 g/dL (6.6-8.7)
[2023-04-13 09:26] LABS: Add Urine Microscopic? YES; Bilirubin Urine Neg (Negative); Blood Urine Neg (Negative); Glucose Urine UA 1+ (Normal); Ketones Urine Negative (Negative); Leukocyte Esterase Urine Trace (Negative); Nitrate Urine Negative (Negative); Protein Urine Neg (Negative); Urine Appearance SL Hazy (CLEAR); Urine Color Yellow (Yellow); Urobilinogen Urine Norm (Negative); pH Urine 6 (5-7)
[2023-04-13] MEDS: sodium chloride 0.9% 250 ML 75 ML IV (10:10)
[2023-04-13] MEDS: palonosetron 0.25 mg/5 mL SDV IVP (10:11)
[2023-04-13 10:16] LABS: RBC Urine RARE /hpf (0-2); Renal Epithelial Cells Urine 0-4 /hpf; Transitional Epi Cells Urine 0-4 /hpf
[2023-04-13 10:17] LABS: Add Urine Culture? No; Hyaline Casts Urine 0-4 /lpf; Mucus Urine 1+ /hpf
[2023-04-13 10:25] LABS: Carcinoembryonic Antigen 3.4 ng/mL (0.0-4.7)
[2023-04-13] MEDS: bevacizumab-awwb 400 MG, bevacizumab-awwb 40 MG in sodium chloride 0.9% (100 ml) 100 ML 240 MG IV (10:52)
[2023-04-13] MEDS: oxaliplatin 100 MG, oxaliplatin 70 MG in dextrose 5% 250 ML 142 MG IV (11:48)
[2023-04-13] MEDS: leucovorin 800 MG in dextrose 5% 250 ML 82.5 MG IV (11:48)
[2023-04-13] MEDS: dextrose 5% 250 ML 75 ML IV (11:50)
[2023-04-13] MEDS: fluorouraciL 3,850 MG, elastomeric pump 1 PUMP in sodium chloride 0.9% (100 ml) 15 ML IV (13:44)
[2023-04-13 13:54] VITALS: BP 137/75; PULSE 87; RESP 18; TEMP 36.6; O2SAT 97
== END 2023-04-13 23:59 | disposition home or self-care (01) ==
PROVIDERS: Internal Medicine Medical Oncology; PCP Nurse Practitioner Family; Visit Provider Internal Medicine
DX: Z51.11 Encounter for antineoplastic chemotherapy (principal); C18.4 Malignant neoplasm of transverse colon; D50.9 Iron deficiency anemia, unspecified; Z79.52 Long term (current) use of systemic steroids; Z79.899 Other long term (current) drug therapy; C78.7 Secondary malignant neoplasm of liver and intrahepatic bile duct; Z53.9 Procedure and treatment not carried out, unspecified reason
CPT/HCPCS: 36415; 80053; 81001; 82378; 83540; 83550; 85025; 87086; 96365; 96366; 96367; 96368; 96375; 96377; 96413; 96415; 96416; 96417; 96523; 99215; J0640; J1100; J1642; J1756; J2469; J7050; J7060; J9190; J9263; Q5107

== ENCOUNTER 2023-04-29 11:00 | Oncology outpatient (recurring) (ONCR) | payer MEDICARE, MEDICAID, SELFPAY ==
[2023-04-15 10:23] VITALS: BP 121/81; PULSE 75; RESP 18; TEMP 36.2; O2SAT 98
[2023-04-27 08:33] LABS: Basophils # 0.1 10^3/uL (0.0-0.1); Basophils % 1.4 %; Eosinophils # 0.7 10^3/uL (0.0-0.8); Eosinophils % 11.4 %; Lymphocytes # 1.4 10^3/uL (0.8-4.8); Lymphocytes % 23.1 %; Mean Corpuscular HGB Conc 31.1 g/dL (30-55); Mean Corpuscular Hemoglobin 24.3 pg (27-33); Mean Corpuscular Volume 78.2 fl (85-98); Mean Platelet Volume 9.4 fL (7.4-10.4); Monocytes # 0.6 10^3/uL (0.2-0.9); Monocytes % 10.7 %; Neutrophils # 3.14 10^3/uL (1.8-7.7); Neutrophils % 53.1 %; Nucleated Red Blood Cells % 0 %; Platelet Count 188 10^3/cmm (157-399); Red Blood Count 4.73 10^6/uL (3.85-5.65); Red Cell Distribution Width 26.4 % (12.1-15.1)
[2023-04-27 09:23] LABS: Alanine Aminotransferase 18 U/L (0-33); Albumin Level 3.7 g/dL (3.5-5.2); Alkaline Phosphatase 80 U/L (35-105); Anion Gap 14.1 (5-19); Aspartate Amino Transferase 21 U/L (0-32); Blood Urea Nitrogen 20 mg/dL (8-23); Calcium 8.9 mg/dL (8.5-10.5); Carbon Dioxide 25 mmol/L (22-29); Chloride 106 mmol/L (98-107); Ferritin 139 ng/mL (15-150); Globulin 2.9 g/dL (1.3-4.6); Glomerular Filtration Rate 62.1 mL/min (90-130); Glucose 203 mg/dL (65-115); Iron 71 ug/dL (37-145); Osmolality Calculated 300 mOsm/kg (285-295); Percent Saturation 22.1 % (20-50); Potassium 4.1 mmol/L (3.5-5.1); Sodium 141 mmol/L (136-145); Total Bilirubin 0.2 mg/dL (0.15-1.2); Total Iron Binding Capacity 321 mcg/dl; Total Protein 6.6 g/dL (6.6-8.7); Unsaturated Iron Binding 250 ug/dL (112-347)
[2023-04-27 09:55] LABS: Carcinoembryonic Antigen 4.8 ng/mL (0.0-4.7)
[2023-04-27 10:30] VITALS: BP 117/81; PULSE 58; RESP 16; TEMP 35.9; O2SAT 99
[2023-04-27] MEDS: sodium chloride 0.9% 250 ML 75 ML IV (10:43)
[2023-04-27] MEDS: palonosetron 0.25 mg/5 mL SDV IVP (10:45)
[2023-04-27] MEDS: bevacizumab-awwb 400 MG, bevacizumab-awwb 40 MG in sodium chloride 0.9% (100 ml) 100 ML 300 MG IV (11:10)
[2023-04-27] MEDS: dextrose 5% 250 ML 75 ML IV (11:49)
[2023-04-27] MEDS: leucovorin 800 MG in dextrose 5% 250 ML 62.5 MG IV (11:55)
[2023-04-27] MEDS: fluorouraciL 3,850 MG, elastomeric pump 1 PUMP in sodium chloride 0.9% (100 ml) 15 ML IV (14:08)
[2023-04-27 14:18] VITALS: BP 137/86; PULSE 67; RESP 16; TEMP 36.6; O2SAT 97
== END 2023-05-12 23:59 | disposition home or self-care (01) ==
PROVIDERS: PCP Nurse Practitioner Family; Visit Provider Internal Medicine
DX: Z53.9 Procedure and treatment not carried out, unspecified reason (principal); Z45.1 Encounter for adjustment and management of infusion pump
CPT/HCPCS: 80053; 82378; 82728; 83540; 83550; 85025; 96365; 96374; 96375; 96413; 96415; 96416; 96417; 96523; 99214; J0640; J1100; J1642; J2469; J7050; J7060; J9190; J9263; Q5107

== ENCOUNTER 2023-06-01 07:30 | Oncology outpatient (recurring) (ONCR) | payer MEDICARE, MEDICAID, SELFPAY ==
[2023-05-18 08:50] LABS: Basophils % 0.7 %; Eosinophils # 0.5 10^3/uL (0.0-0.8); Eosinophils % 9.2 %; Hematocrit 38.9 % (36-47); Lymphocytes # 0.9 10^3/uL (0.8-4.8); Lymphocytes % 16.4 %; Mean Corpuscular HGB Conc 31.6 g/dL (30-55); Mean Corpuscular Hemoglobin 24.7 pg (27-33); Mean Corpuscular Volume 78.3 fl (85-98); Mean Platelet Volume 9.2 fL (7.4-10.4); Monocytes # 0.5 10^3/uL (0.2-0.9); Monocytes % 9.2 %; Neutrophils # 3.65 10^3/uL (1.8-7.7); Neutrophils % 64.3 %; Nucleated Red Blood Cells % 0 %; Platelet Count 383 10^3/cmm (157-399); Red Blood Count 4.97 10^6/uL (3.85-5.65); Red Cell Distribution Width 25.4 % (12.1-15.1); White Blood Count 5.67 10^3/uL (3.29-11.43)
[2023-05-18 08:51] VITALS: BMI 29.8
[2023-05-18 08:54] VITALS: BP 118/78; PULSE 56; RESP 16; TEMP 36.1; O2SAT 98
[2023-05-18] MEDS: alteplase 1 mg/mL SDV 2 mL 2 MG INTRACATH (09:04)
[2023-05-18 09:22] LABS: Carcinoembryonic Antigen 3.6 ng/mL (0.0-4.7)
[2023-05-18 09:33] LABS: Alanine Aminotransferase 18 U/L (0-33); Albumin Level 3.8 g/dL (3.5-5.2); Alkaline Phosphatase 114 U/L (35-105); Anion Gap 17.4 (5-19); Aspartate Amino Transferase 19 U/L (0-32); Blood Urea Nitrogen 21 mg/dL (8-23); Calcium 8.8 mg/dL (8.5-10.5); Carbon Dioxide 24 mmol/L (22-29); Chloride 101 mmol/L (98-107); Glomerular Filtration Rate 49.2 mL/min (90-130); Glucose 203 mg/dL (65-115); Osmolality Calculated 295 mOsm/kg (285-295); Potassium 4.4 mmol/L (3.5-5.1); Sodium 138 mmol/L (136-145); Total Bilirubin 0.2 mg/dL (0.15-1.2); Total Protein 7.8 g/dL (6.6-8.7)
[2023-05-18 09:36] LABS: Creatinine Clr Calc Pharmacy 54.5006
[2023-05-18] MEDS: sodium chloride 0.9% 250 ML 75 ML IV (10:52)
[2023-05-18] MEDS: palonosetron 0.25 mg/5 mL SDV IVP (10:52)
[2023-05-18] MEDS: bevacizumab-awwb 400 MG, bevacizumab-awwb 40 MG in sodium chloride 0.9% (100 ml) 100 ML 300 MG IV (11:15)
[2023-05-18] MEDS: dextrose 5% 250 ML 75 ML IV (11:56)
[2023-05-18] MEDS: leucovorin 800 MG in dextrose 5% 250 ML 62.5 MG IV (11:57)
[2023-05-18] MEDS: fluorouraciL 3,850 MG, elastomeric pump 1 PUMP in sodium chloride 0.9% (100 ml) 15 ML IV (14:22)
[2023-05-20 10:27] VITALS: BP 156/96; PULSE 104; RESP 18; TEMP 36.5; O2SAT 98
[2023-06-01 07:48] LABS: Basophils # 0.1 10^3/uL (0.0-0.1); Eosinophils # 0.8 10^3/uL (0.0-0.8); Eosinophils % 13.1 %; Hematocrit 36.2 % (36-47); Lymphocytes # 1.5 10^3/uL (0.8-4.8); Lymphocytes % 23.9 %; Mean Corpuscular Hemoglobin 25.3 pg (27-33); Mean Platelet Volume 9.8 fL (7.4-10.4); Monocytes # 0.7 10^3/uL (0.2-0.9); Monocytes % 11.2 %; Neutrophils # 3.17 10^3/uL (1.8-7.7); Neutrophils % 50.5 %; Nucleated Red Blood Cells % 0 %; Platelet Count 214 10^3/cmm (157-399); Red Blood Count 4.58 10^6/uL (3.85-5.65); Red Cell Distribution Width 24.3 % (12.1-15.1); White Blood Count 6.27 10^3/uL (3.29-11.43)
[2023-06-01 07:58] LABS: Protein Urine Neg (Negative); Urine Appearance Clear (CLEAR); Urine Color Yellow (Yellow); pH Urine 6.5 (5-7)
[2023-06-01 07:59] LABS: Add Urine Culture? Yes; Add Urine Microscopic? YES; Bacteria Urine 1+ /hpf; Bilirubin Urine Neg (Negative); Blood Urine Neg (Negative); Glucose Urine UA Norm (Normal); Ketones Urine Negative (Negative); Leukocyte Esterase Urine 2+ (Negative); Nitrate Urine Negative (Negative); Urobilinogen Urine Norm (Negative); WBC Urine 15-25 /hpf (0-5)
[2023-06-01 08:27] LABS: Carcinoembryonic Antigen 4.4 ng/mL (0.0-4.7)
[2023-06-01 08:38] LABS: Alanine Aminotransferase 12 U/L (0-33); Alkaline Phosphatase 87 U/L (35-105); Anion Gap 12.9 (5-19); Aspartate Amino Transferase 17 U/L (0-32); Blood Urea Nitrogen 17 mg/dL (8-23); Carbon Dioxide 26 mmol/L (22-29); Chloride 102 mmol/L (98-107); Creatinine Clr Calc Pharmacy 66.6964; Globulin 3.4 g/dL (1.3-4.6); Glomerular Filtration Rate 62.1 mL/min (90-130); Glucose 186 mg/dL (65-115); Osmolality Calculated 290 mOsm/kg (285-295); Potassium 3.9 mmol/L (3.5-5.1); Sodium 137 mmol/L (136-145); Total Bilirubin 0.2 mg/dL (0.15-1.2); Total Protein 7.4 g/dL (6.6-8.7)
[2023-06-01] MEDS: sodium chloride 0.9% 250 ML 75 ML IV (09:33)
[2023-06-01] MEDS: palonosetron 0.25 mg/5 mL SDV IVP (09:37)
[2023-06-01] MEDS: bevacizumab-awwb 400 MG, bevacizumab-awwb 40 MG in sodium chloride 0.9% (100 ml) 100 ML 235 MG IV (10:09)
[2023-06-01] MEDS: dextrose 5% 250 ML 75 ML IV (11:53)
[2023-06-01] MEDS: leucovorin 800 MG in dextrose 5% 250 ML 62.5 MG IV (11:53)
[2023-06-01] MEDS: fluorouraciL 3,850 MG, elastomeric pump 1 PUMP in sodium chloride 0.9% (100 ml) 15 ML IV (14:13)
[2023-06-01 14:20] VITALS: BP 124/78; PULSE 94; RESP 18; TEMP 36.6; O2SAT 98
== END 2023-06-01 23:59 | disposition home or self-care (01) ==
PROVIDERS: Nurse Practitioner Family; PCP Nurse Practitioner Family; Visit Provider Internal Medicine
DX: Z45.1 Encounter for adjustment and management of infusion pump; D50.9 Iron deficiency anemia, unspecified; C18.4 Malignant neoplasm of transverse colon; C78.7 Secondary malignant neoplasm of liver and intrahepatic bile duct; R30.9 Painful micturition, unspecified; Z95.828 Presence of other vascular implants and grafts; Z53.9 Procedure and treatment not carried out, unspecified reason
CPT/HCPCS: 36415; 36593; 80053; 81001; 82378; 85025; 87077; 87086; 96365; 96367; 96368; 96374; 96375; 96413; 96415; 96416; 96417; 96523; 99214; J0640; J1100; J1642; J2469; J2997; J7050; J7060; J9190; J9263; Q5107

== ENCOUNTER 2023-06-03 09:33 | Oncology outpatient (recurring) (ONCR) | payer MEDICARE, MEDICAID, SELFPAY ==
[2023-06-03 09:55] VITALS: BP 145/76; PULSE 77; O2SAT 98
== END 2023-06-12 23:59 | disposition home or self-care (01) ==
PROVIDERS: PCP Nurse Practitioner Family; Visit Provider Internal Medicine
DX: Z45.1 Encounter for adjustment and management of infusion pump
CPT/HCPCS: 96523; J1642

== ENCOUNTER 2023-06-13 14:03 | Outpatient (CLI) | payer MEDICARE, MEDICAID, SELFPAY ==
--- NOTE | 2023-06-13 15:14 | CT_ITS ---
WS: [id number] Examination: CT abdomen pelvis w con* [id number] Reason for Exam: left sided abdominal pain history of colon cancer Date: June 13, 2023 Comparison: March 03, 2023 DLP: 610.[address] scans at [facility] use at least one of these dose optimization techniques: automated e xposure control; mA and/or kV adjustment per patient size (includes targeted exams where dose is matc hed to clinical indication); or iterative reconstruction. Findings: The heart is normal in size. There is no pleural effusion or extreme basilar nodule. Again surgical changes to the left lobe of the liver is identified. No new mass is identified. There is minimal biliary prominence identified. The right portal vein and main portal veins are patent. The spleen is unremarkable. There is no adrenal mass. The kidneys are well-perfused. There is no stone or hydronephrosis. Pancreas is unremarkable. The aorta is normal in size. There is no small bowel obstruction. There is no free air. There is increased stool in the colon. The re is been a right hemicolectomy. In the right upper quadrant there is a hypodense mass or complex fluid collection again noted. Overal l it appears smaller and more contained. This may be postoperative in nature less likely metastatic. The previously identified dominant fluid collection seen anteriorly on the left has diminished in siz e. It measures approximately 13 x 6 cm. Previously it measured approximately 20 x 10 cm. The associat ed nodular thickening in the left gutter has diminished in size in the interval. In the left upper quadrant anterior to the stomach there is again noted complex fluid/soft tissue den sity. Previously measured this measured approximately 1.5 x 4 cm. Today it measures approximately 1.5 x 3 cm. Anterior ventral hernias are identified some contain fat another contains nonobstructed small bowel i n the midline Impression: Status post right hemicolectomy. Again areas of fluid/soft tissue density are noted. Overall these flores ve diminished in size and may represent postoperative changes. There is no focal liver or adrenal les ion. 6-month follow-up is recommended.
[2023-06-13] MEDS: iohexol 350 mg/mL 500 mL Btl (per mL) PO (15:40)
[2023-06-13] MEDS: iohexol 350 mg/mL 500 mL Btl (per mL) IV (15:41)
== END 2023-06-13 14:04 | disposition home or self-care (01) ==
PROVIDERS: PCP Nurse Practitioner Family; Visit Provider Nurse Practitioner Family
DX: C18.4 Malignant neoplasm of transverse colon (principal); Z90.49 Acquired absence of other specified parts of digestive tract
CPT/HCPCS: 74177; Q9967

== ENCOUNTER 2023-06-29 08:03 | Oncology outpatient (recurring) (ONCR) | payer MEDICARE, MEDICAID, SELFPAY ==
--- NOTE | 2023-06-14 14:52 | CT_ITS ---
WS: [id number] Examination: CT chest w con* [id number] Reason for Exam: MALIGNANT NEOPLASM OF COLON Date: June 14, 2023 Comparison: March 03, 2023. DLP: 403.[address] scans at [facility] use at least one of these dose optimization techniques: automated e xposure control; mA and/or kV adjustment per patient size (includes targeted exams where dose is matc hed to clinical indication); or iterative reconstruction. Findings: There is no pleural effusion. There is no dense consolidation. No dominant lung mass is identified. G ranulomatous changes are present. A right-sided Port-A-Cath is noted. The heart is not grossly enlarged. Mediastinal and hilar nodes are identified a large portion of these appear calcified. I see no adenop athy. Images beneath the hemidiaphragms demonstrate previous left hepatic resection. No liver mass is seen. The portal vein is patent. There is no adrenal mass. The portions of the kidneys visualized are unre markable. The spleen is unremarkable. Again the dominant abnormal fluid collection posterior to the stomach is noted along with the density anterior to the liver as well as one anterior to the stomach.. These are smaller in size. These are better visualized on the recent CT of the abdomen. Anterior ventral hernias are noted. Impression: There is no lung mass or adenopathy. Granulomatous changes are present.
[2023-06-14] MEDS: iohexol 350 mg/mL 500 mL Btl (per mL) IV (15:50)
[2023-06-15 08:30] LABS: Basophils # 0.1 10^3/uL (0.0-0.1); Basophils % 0.8 %; Eosinophils # 0.8 10^3/uL (0.0-0.8); Eosinophils % 12.8 %; Hematocrit 36.7 % (36-47); Lymphocytes # 1.3 10^3/uL (0.8-4.8); Lymphocytes % 19.6 %; Mean Corpuscular HGB Conc 31.9 g/dL (30-55); Mean Corpuscular Hemoglobin 26.2 pg (27-33); Mean Corpuscular Volume 82.1 fl (85-98); Monocytes # 0.7 10^3/uL (0.2-0.9); Monocytes % 10.4 %; Neutrophils % 56.1 %; Nucleated Red Blood Cells % 0 %; Platelet Count 193 10^3/cmm (157-399); Red Blood Count 4.47 10^6/uL (3.85-5.65); Red Cell Distribution Width 22.9 % (12.1-15.1); White Blood Count 6.42 10^3/uL (3.29-11.43)
[2023-06-15 09:25] LABS: Carcinoembryonic Antigen 5.1 ng/mL (0.0-4.7)
[2023-06-15 09:38] LABS: Alanine Aminotransferase 25 U/L (0-33); Albumin Level 3.9 g/dL (3.5-5.2); Alkaline Phosphatase 95 U/L (35-105); Anion Gap 15.2 (5-19); Aspartate Amino Transferase 32 U/L (0-32); Blood Urea Nitrogen 13 mg/dL (8-23); Calcium 9.1 mg/dL (8.5-10.5); Carbon Dioxide 25 mmol/L (22-29); Chloride 104 mmol/L (98-107); Globulin 3.5 g/dL (1.3-4.6); Glucose 193 mg/dL (65-115); Osmolality Calculated 295 mOsm/kg (285-295); Potassium 4.2 mmol/L (3.5-5.1); Sodium 140 mmol/L (136-145); Total Bilirubin 0.3 mg/dL (0.15-1.2); Total Protein 7.4 g/dL (6.6-8.7)
[2023-06-15] MEDS: sodium chloride 0.9% 250 ML 75 ML IV (10:39)
[2023-06-15] MEDS: palonosetron 0.25 mg/5 mL SDV IVP (10:41)
[2023-06-15] MEDS: bevacizumab-awwb 400 MG, bevacizumab-awwb 40 MG in sodium chloride 0.9% (100 ml) 100 ML 220 MG IV (11:08)
[2023-06-15] MEDS: dextrose 5% 250 ML 75 ML IV (12:20)
[2023-06-15] MEDS: leucovorin 800 MG in dextrose 5% 250 ML 62.5 MG IV (12:20)
[2023-06-15 14:43] VITALS: BP 147/92; PULSE 82; O2SAT 97
[2023-06-15] MEDS: fluorouraciL 3,850 MG, elastomeric pump 1 PUMP in sodium chloride 0.9% (100 ml) 15 ML IV (14:44)
[2023-06-17 11:30] VITALS: BP 121/78; PULSE 85; RESP 17; TEMP 36.3; O2SAT 97
[2023-06-29 08:37] LABS: Basophils # 0.1 10^3/uL (0.0-0.1); Basophils % 0.7 %; Eosinophils # 0.9 10^3/uL (0.0-0.8); Eosinophils % 13.5 %; Hematocrit 38.7 % (36-47); Lymphocytes # 1.6 10^3/uL (0.8-4.8); Lymphocytes % 23.1 %; Mean Corpuscular HGB Conc 32.6 g/dL (30-55); Mean Corpuscular Hemoglobin 27.5 pg (27-33); Mean Corpuscular Volume 84.5 fl (85-98); Mean Platelet Volume 9.7 fL (7.4-10.4); Monocytes # 0.7 10^3/uL (0.2-0.9); Monocytes % 9.6 %; Neutrophils # 3.54 10^3/uL (1.8-7.7); Neutrophils % 52.7 %; Nucleated Red Blood Cells % 0 %; Platelet Count 181 10^3/cmm (157-399); Red Blood Count 4.58 10^6/uL (3.85-5.65); Red Cell Distribution Width 20.2 % (12.1-15.1); White Blood Count 6.74 10^3/uL (3.29-11.43)
[2023-06-29 08:48] LABS: Bilirubin Urine Neg (Negative); Blood Urine Neg (Negative); Glucose Urine UA Norm (Normal); Ketones Urine Negative (Negative); Leukocyte Esterase Urine 2+ (Negative); Nitrate Urine Negative (Negative); Protein Urine Neg (Negative); Urine Appearance Hazy (CLEAR); Urine Color Yellow (Yellow); Urobilinogen Urine Norm (Negative); pH Urine 5 (5-7)
[2023-06-29 08:52] LABS: Add Urine Culture? Yes; Bacteria Urine 1+ /hpf; Mucus Urine 2+ /hpf; RBC Urine 0-4 /hpf (0-2); Squamous Epithelial Cell Urine 0-4 /hpf (0-5); Transitional Epi Cells Urine 0-4 /hpf; WBC Urine 25-40 /hpf (0-5)
[2023-06-29 09:01] LABS: Carcinoembryonic Antigen 5.8 ng/mL (0.0-4.7)
[2023-06-29 09:12] LABS: Alanine Aminotransferase 12 U/L (0-33); Alkaline Phosphatase 83 U/L (35-105); Aspartate Amino Transferase 15 U/L (0-32); Blood Urea Nitrogen 15 mg/dL (8-23); Calcium 9.1 mg/dL (8.5-10.5); Carbon Dioxide 25 mmol/L (22-29); Chloride 105 mmol/L (98-107); Creatinine Clr Calc Pharmacy 65.9182; Globulin 3.3 g/dL (1.3-4.6); Glomerular Filtration Rate 62.1 mL/min (90-130); Glucose 144 mg/dL (65-115); Osmolality Calculated 297 mOsm/kg (285-295); Sodium 142 mmol/L (136-145); Total Bilirubin 0.3 mg/dL (0.15-1.2); Total Protein 7.3 g/dL (6.6-8.7)
[2023-06-29] MEDS: sodium chloride 0.9% 250 ML 75 ML IV (11:01)
[2023-06-29] MEDS: palonosetron 0.25 mg/5 mL SDV IVP (11:05)
[2023-06-29] MEDS: bevacizumab-awwb 400 MG, bevacizumab-awwb 40 MG in sodium chloride 0.9% (100 ml) 100 ML 300 MG IV (11:34)
[2023-06-29] MEDS: dextrose 5% 250 ML 75 ML IV (12:34)
[2023-06-29] MEDS: leucovorin 800 MG in dextrose 5% 250 ML 62.5 MG IV (12:35)
[2023-06-29] MEDS: fluorouraciL 3,850 MG, elastomeric pump 1 PUMP in sodium chloride 0.9% (100 ml) 15 ML IV (14:48)
[2023-06-29 14:57] VITALS: BP 145/88; PULSE 79; RESP 18; TEMP 36.6; O2SAT 94
== END 2023-06-29 23:59 | disposition home or self-care (01) ==
PROVIDERS: Internal Medicine Medical Oncology; PCP Nurse Practitioner Family; Visit Provider Internal Medicine
DX: Z53.9 Procedure and treatment not carried out, unspecified reason (principal); Z45.1 Encounter for adjustment and management of infusion pump; C18.4 Malignant neoplasm of transverse colon; C78.7 Secondary malignant neoplasm of liver and intrahepatic bile duct; D50.9 Iron deficiency anemia, unspecified; Z79.899 Other long term (current) drug therapy
CPT/HCPCS: 71260; 74177; 80053; 81001; 82378; 85025; 87086; 96365; 96367; 96368; 96374; 96375; 96413; 96415; 96416; 96417; 96523; 99214; 99215; J0640; J1100; J1642; J2469; J7050; J7060; J9190; J9263; Q5107; Q9967

== ENCOUNTER 2023-07-01 11:51 | Oncology outpatient (recurring) (ONCR) | payer MEDICARE, MEDICAID, SELFPAY | END 2023-07-12 23:59 | disposition home or self-care (01) | PROVIDERS: PCP Nurse Practitioner Family; Visit Provider Internal Medicine | DX: Z45.1 Encounter for adjustment and management of infusion pump (principal) | CPT/HCPCS: 96523 ==

== ENCOUNTER 2023-08-03 08:19 | Oncology outpatient (recurring) (ONCR) | payer MEDICARE, MEDICAID, SELFPAY ==
[2023-07-13 08:25] LABS: Basophils # 0.1 10^3/uL (0.0-0.1); Basophils % 0.9 %; Eosinophils # 0.8 10^3/uL (0.0-0.8); Eosinophils % 12.7 %; Hematocrit 37.4 % (36-47); Lymphocytes # 1.6 10^3/uL (0.8-4.8); Lymphocytes % 24.1 %; Mean Corpuscular HGB Conc 32.9 g/dL (30-55); Mean Corpuscular Hemoglobin 28.3 pg (27-33); Mean Corpuscular Volume 86.2 fl (85-98); Mean Platelet Volume 9.6 fL (7.4-10.4); Monocytes # 0.7 10^3/uL (0.2-0.9); Monocytes % 10.7 %; Neutrophils # 3.36 10^3/uL (1.8-7.7); Neutrophils % 51.3 %; Nucleated Red Blood Cells % 0 %; Platelet Count 159 10^3/cmm (157-399); Red Blood Count 4.34 10^6/uL (3.85-5.65); Red Cell Distribution Width 18.6 % (12.1-15.1); White Blood Count 6.55 10^3/uL (3.29-11.43)
[2023-07-13 08:56] LABS: Carcinoembryonic Antigen 4.5 ng/mL (0.0-4.7)
[2023-07-13 09:07] LABS: Alanine Aminotransferase 19 U/L (0-33); Albumin Level 3.9 g/dL (3.5-5.2); Alkaline Phosphatase 80 U/L (35-105); Anion Gap 13.9 (5-19); Aspartate Amino Transferase 22 U/L (0-32); Blood Urea Nitrogen 16 mg/dL (8-23); Calcium 9.4 mg/dL (8.5-10.5); Carbon Dioxide 26 mmol/L (22-29); Chloride 104 mmol/L (98-107); Globulin 3.3 g/dL (1.3-4.6); Glomerular Filtration Rate 62.1 mL/min (90-130); Glucose 160 mg/dL (65-115); Osmolality Calculated 295 mOsm/kg (285-295); Potassium 3.9 mmol/L (3.5-5.1); Sodium 140 mmol/L (136-145); Total Bilirubin 0.3 mg/dL (0.15-1.2); Total Protein 7.2 g/dL (6.6-8.7)
[2023-07-20 08:31] LABS: Basophils # 0.1 10^3/uL (0.0-0.1); Basophils % 0.9 %; Eosinophils # 0.8 10^3/uL (0.0-0.8); Eosinophils % 14.3 %; Hematocrit 39.6 % (36-47); Lymphocytes # 1.7 10^3/uL (0.8-4.8); Lymphocytes % 30.5 %; Mean Corpuscular HGB Conc 32.6 g/dL (30-55); Mean Corpuscular Hemoglobin 28.9 pg (27-33); Mean Corpuscular Volume 88.6 fl (85-98); Mean Platelet Volume 9.8 fL (7.4-10.4); Monocytes # 0.6 10^3/uL (0.2-0.9); Monocytes % 11.4 %; Neutrophils # 2.35 10^3/uL (1.8-7.7); Neutrophils % 42.7 %; Nucleated Red Blood Cells % 0 %; Platelet Count 202 10^3/cmm (157-399); Red Blood Count 4.47 10^6/uL (3.85-5.65); Red Cell Distribution Width 17.9 % (12.1-15.1); White Blood Count 5.51 10^3/uL (3.29-11.43)
[2023-07-20 08:51] LABS: Alanine Aminotransferase 24 U/L (0-33); Alkaline Phosphatase 87 U/L (35-105); Anion Gap 16.2 (5-19); Aspartate Amino Transferase 26 U/L (0-32); Blood Urea Nitrogen 20 mg/dL (8-23); Calcium 9.3 mg/dL (8.5-10.5); Carbon Dioxide 25 mmol/L (22-29); Chloride 104 mmol/L (98-107); Creatinine Clr Calc Pharmacy 74.9384; Globulin 3.3 g/dL (1.3-4.6); Glomerular Filtration Rate 71.1 mL/min (90-130); Glucose 175 mg/dL (65-115); Osmolality Calculated 299 mOsm/kg (285-295); Potassium 4.2 mmol/L (3.5-5.1); Sodium 141 mmol/L (136-145); Total Bilirubin 0.2 mg/dL (0.15-1.2); Total Protein 7.3 g/dL (6.6-8.7)
[2023-07-20] MEDS: sodium chloride 0.9% 250 ML 75 ML IV (10:00)
[2023-07-20] MEDS: palonosetron 0.25 mg/5 mL SDV IVP (10:00)
[2023-07-20] MEDS: bevacizumab-awwb 400 MG, bevacizumab-awwb 40 MG in sodium chloride 0.9% (100 ml) 100 ML 234 MG IV (10:26)
[2023-07-20] MEDS: dextrose 5% 250 ML 75 ML IV (11:09)
[2023-07-20] MEDS: leucovorin 800 MG in dextrose 5% 250 ML 62.5 MG IV (11:09)
[2023-07-20] MEDS: oxaliplatin 100 MG, oxaliplatin 10 MG in dextrose 5% 250 ML 136 MG IV (11:10)
[2023-07-20] MEDS: fluorouraciL 2,900 MG, elastomeric pump 1 PUMP in sodium chloride 0.9% (100 ml) 34 ML IV (15:12)
[2023-07-20 15:20] VITALS: BP 134/75; PULSE 77; RESP 17; TEMP 36.2; O2SAT 98
[2023-07-22 11:27] VITALS: BP 111/76; PULSE 87; RESP 17; TEMP 36.2; O2SAT 96
[2023-08-03 08:51] LABS: Basophils % 0.5 %; Eosinophils # 0.7 10^3/uL (0.0-0.8); Eosinophils % 9.2 %; Hematocrit 37.9 % (36-47); Lymphocytes # 1.4 10^3/uL (0.8-4.8); Lymphocytes % 18.4 %; Mean Corpuscular HGB Conc 32.5 g/dL (30-55); Mean Corpuscular Hemoglobin 28.7 pg (27-33); Mean Corpuscular Volume 88.6 fl (85-98); Mean Platelet Volume 10.1 fL (7.4-10.4); Monocytes # 0.6 10^3/uL (0.2-0.9); Monocytes % 7.7 %; Neutrophils # 4.98 10^3/uL (1.8-7.7); Neutrophils % 63.9 %; Nucleated Red Blood Cells % 0 %; Platelet Count 184 10^3/cmm (157-399); Red Blood Count 4.28 10^6/uL (3.85-5.65); Red Cell Distribution Width 16.7 % (12.1-15.1); White Blood Count 7.79 10^3/uL (3.29-11.43)
[2023-08-03 09:11] LABS: Alanine Aminotransferase 18 U/L (0-33); Albumin Level 3.8 g/dL (3.5-5.2); Alkaline Phosphatase 81 U/L (35-105); Anion Gap 13.1 (5-19); Aspartate Amino Transferase 19 U/L (0-32); Blood Urea Nitrogen 18 mg/dL (8-23); Calcium 9.5 mg/dL (8.5-10.5); Carbon Dioxide 27 mmol/L (22-29); Chloride 102 mmol/L (98-107); Creatinine Clr Calc Pharmacy 59.8749; Globulin 3.5 g/dL (1.3-4.6); Glucose 160 mg/dL (65-115); Osmolality Calculated 291 mOsm/kg (285-295); Potassium 4.1 mmol/L (3.5-5.1); Sodium 138 mmol/L (136-145); Total Bilirubin 0.3 mg/dL (0.15-1.2); Total Protein 7.3 g/dL (6.6-8.7)
[2023-08-03] MEDS: palonosetron 0.25 mg/5 mL SDV IVP (10:11)
[2023-08-03] MEDS: sodium chloride 0.9% 250 ML 75 ML IV (10:11)
[2023-08-03] MEDS: bevacizumab-awwb 400 MG, bevacizumab-awwb 40 MG in sodium chloride 0.9% (100 ml) 100 ML 234 MG IV (10:33)
[2023-08-03] MEDS: dextrose 5% 250 ML 75 ML IV (11:13)
[2023-08-03] MEDS: leucovorin 800 MG in dextrose 5% 250 ML 62.5 MG IV (11:15)
[2023-08-03] MEDS: oxaliplatin 100 MG, oxaliplatin 10 MG in dextrose 5% 250 ML 136 MG IV (11:15)
[2023-08-03] MEDS: fluorouraciL 2,900 MG, elastomeric pump 1 PUMP in sodium chloride 0.9% (100 ml) 34 ML IV (13:23)
[2023-08-03 13:30] VITALS: BP 145/84; PULSE 74; RESP 16; TEMP 36.1; O2SAT 98
== END 2023-08-03 23:59 | disposition home or self-care (01) ==
PROVIDERS: Nurse Practitioner Family; PCP Nurse Practitioner Family; Visit Provider Internal Medicine
DX: Z53.9 Procedure and treatment not carried out, unspecified reason (principal); Z51.11 Encounter for antineoplastic chemotherapy; C18.4 Malignant neoplasm of transverse colon; Z79.899 Other long term (current) drug therapy; Z79.52 Long term (current) use of systemic steroids; Z87.891 Personal history of nicotine dependence; C78.7 Secondary malignant neoplasm of liver and intrahepatic bile duct
CPT/HCPCS: 36591; 80053; 82378; 85025; 96365; 96366; 96367; 96368; 96375; 96413; 96415; 96416; 96417; 96523; 99214; J0640; J1100; J2469; J7050; J7060; J9190; J9263; Q5107

== ENCOUNTER 2023-08-05 10:22 | Oncology outpatient (recurring) (ONCR) | payer MEDICARE, MEDICAID, SELFPAY ==
[2023-08-05 10:32] VITALS: BP 121/81; PULSE 88; RESP 16; TEMP 36.5; O2SAT 97
== END 2023-08-12 23:59 | disposition home or self-care (01) ==
LOC: ONCMED 10:22
PROVIDERS: PCP Nurse Practitioner Family; Visit Provider Internal Medicine
DX: Z45.1 Encounter for adjustment and management of infusion pump (principal)
CPT/HCPCS: 96523

== ENCOUNTER 2023-09-07 08:00 | Oncology outpatient (recurring) (ONCR) | payer MEDICARE, MEDICAID, SELFPAY ==
[2023-08-24 08:31] LABS: Basophils # 0.1 10^3/uL (0.0-0.1); Basophils % 1.1 %; Eosinophils # 1.1 10^3/uL (0.0-0.8); Eosinophils % 20.1 %; Hematocrit 39.4 % (36-47); Lymphocytes # 1.9 10^3/uL (0.8-4.8); Mean Corpuscular HGB Conc 32.5 g/dL (30-55); Mean Corpuscular Hemoglobin 29.1 pg (27-33); Mean Corpuscular Volume 89.5 fl (85-98); Monocytes # 0.6 10^3/uL (0.2-0.9); Monocytes % 9.8 %; Neutrophils # 1.94 10^3/uL (1.8-7.7); Neutrophils % 34.6 %; Nucleated Red Blood Cells % 0 %; Platelet Count 200 10^3/cmm (157-399); White Blood Count 5.61 10^3/uL (3.29-11.43)
[2023-08-24 08:48] LABS: Alkaline Phosphatase 89 U/L (35-105); Aspartate Amino Transferase 32 U/L (0-32); Blood Urea Nitrogen 15 mg/dL (8-23); Calcium 9.2 mg/dL (8.5-10.5); Carbon Dioxide 26 mmol/L (22-29); Chloride 105 mmol/L (98-107); Globulin 3.4 g/dL (1.3-4.6); Glomerular Filtration Rate 62.1 mL/min (90-130); Glucose 141 mg/dL (65-115); Osmolality Calculated 299 mOsm/kg (285-295); Sodium 143 mmol/L (136-145); Total Bilirubin 0.2 mg/dL (0.15-1.2); Total Protein 7.4 g/dL (6.6-8.7)
[2023-08-24 08:59] LABS: Alanine Aminotransferase 20 U/L (0-33)
[2023-08-24] MEDS: palonosetron 0.25 mg/5 mL SDV IVP (10:41)
[2023-08-24] MEDS: sodium chloride 0.9% 250 ML 75 ML IV (10:41)
[2023-08-24] MEDS: dexamethasone 4 mg/mL INJ 5 mL 12 MG IVP (10:44)
[2023-08-24 10:58] LABS: Add Urine Microscopic? YES; Bilirubin Urine Neg (Negative); Blood Urine Trace (Negative); Glucose Urine UA Norm (Normal); Ketones Urine 1+ (Negative); Leukocyte Esterase Urine 2+ (Negative); Nitrate Urine Negative (Negative); Protein Urine Neg (Negative); RBC Urine 0-4 /hpf (0-2); Specific Gravity, Urine 1.025 (1.005-1.030); Urine Appearance Cloudy (CLEAR); Urine Color Dark Yellow (Yellow); Urobilinogen Urine Norm (Negative); WBC Urine 55-80 /hpf (0-5); pH Urine 5 (5-7)
[2023-08-24 10:59] LABS: Bacteria Urine 1+ /hpf; Mucus Urine 2+ /hpf; Squamous Epithelial Cell Urine 15-25 /hpf (0-5)
[2023-08-24] MEDS: bevacizumab-awwb 400 MG, bevacizumab-awwb 40 MG in sodium chloride 0.9% (100 ml) 100 ML 236 MG IV (11:12)
[2023-08-24] MEDS: dextrose 5% 250 ML 75 ML IV (11:53)
[2023-08-24] MEDS: oxaliplatin 100 MG, oxaliplatin 10 MG in dextrose 5% 250 ML 136 MG IV (11:57)
[2023-08-24] MEDS: leucovorin 800 MG in dextrose 5% 250 ML 62.5 MG IV (11:57)
[2023-08-24 14:05] VITALS: BP 137/55; PULSE 69; RESP 16; TEMP 36.5; O2SAT 99
[2023-08-24] MEDS: FLUOROURACIL IV (14:10)
[2023-08-24] MEDS: ELASTOMERIC PUMP PUMP IV (14:10)
[2023-08-24] MEDS: SODIUM CHLORIDE IV (14:10)
[2023-08-24 14:49] LABS: Carcinoembryonic Antigen 3.7 ng/mL (0.0-4.7)
[2023-08-26 11:07] VITALS: BP 119/71; PULSE 73; RESP 16; TEMP 36.6; O2SAT 97
[2023-09-07 08:30] LABS: Basophils # 0.1 10^3/uL (0.0-0.1); Basophils % 0.8 %; Eosinophils # 1.1 10^3/uL (0.0-0.8); Eosinophils % 13.3 %; Lymphocytes # 1.7 10^3/uL (0.8-4.8); Lymphocytes % 20.4 %; Mean Corpuscular HGB Conc 32.8 g/dL (30-55); Mean Corpuscular Hemoglobin 29.6 pg (27-33); Mean Corpuscular Volume 90.5 fl (85-98); Mean Platelet Volume 9.7 fL (7.4-10.4); Monocytes # 0.7 10^3/uL (0.2-0.9); Monocytes % 8.4 %; Neutrophils # 4.69 10^3/uL (1.8-7.7); Neutrophils % 56.9 %; Nucleated Red Blood Cells % 0 %; Platelet Count 198 10^3/cmm (157-399); Red Blood Count 4.42 10^6/uL (3.85-5.65); Red Cell Distribution Width 15.9 % (12.1-15.1); White Blood Count 8.25 10^3/uL (3.29-11.43)
[2023-09-07 09:23] LABS: Carcinoembryonic Antigen 4.6 ng/mL (0.0-4.7)
[2023-09-07 09:34] LABS: Alanine Aminotransferase 16 U/L (0-33); Albumin Level 4.1 g/dL (3.5-5.2); Alkaline Phosphatase 85 U/L (35-105); Anion Gap 17.1 (5-19); Aspartate Amino Transferase 20 U/L (0-32); Blood Urea Nitrogen 14 mg/dL (8-23); Calcium 9.3 mg/dL (8.5-10.5); Carbon Dioxide 25 mmol/L (22-29); Chloride 101 mmol/L (98-107); Creatinine Clr Calc Pharmacy 65.0908; Globulin 3.5 g/dL (1.3-4.6); Glomerular Filtration Rate 61.9 mL/min (90-130); Glucose 95 mg/dL (65-115); Osmolality Calculated 288 mOsm/kg (285-295); Potassium 4.1 mmol/L (3.5-5.1); Sodium 139 mmol/L (136-145); Total Bilirubin 0.3 mg/dL (0.15-1.2); Total Protein 7.6 g/dL (6.6-8.7)
[2023-09-07] MEDS: sodium chloride 0.9% 250 ML 75 ML IV (10:08)
[2023-09-07] MEDS: palonosetron 0.25 mg/5 mL SDV IVP (10:11)
[2023-09-07] MEDS: dexamethasone 4 mg/mL INJ 5 mL 12 MG IVP (10:14)
[2023-09-07] MEDS: bevacizumab-awwb 400 MG, bevacizumab-awwb 40 MG in sodium chloride 0.9% (100 ml) 100 ML 240 MG IV (10:45)
[2023-09-07] MEDS: dextrose 5% 250 ML 75 ML IV (11:38)
[2023-09-07] MEDS: oxaliplatin 100 MG, oxaliplatin 10 MG in dextrose 5% 250 ML 136 MG IV (11:39)
[2023-09-07] MEDS: leucovorin 800 MG in dextrose 5% 250 ML 62.5 MG IV (11:39)
[2023-09-07] MEDS: SODIUM CHLORIDE IV (13:47)
[2023-09-07] MEDS: ELASTOMERIC PUMP PUMP IV (13:47)
[2023-09-07] MEDS: FLUOROURACIL IV (13:47)
[2023-09-07 13:50] VITALS: BP 130/74; PULSE 80; RESP 16; TEMP 36.6; O2SAT 94
== END 2023-09-07 23:59 | disposition home or self-care (01) ==
PROVIDERS: Nurse Practitioner Family; PCP Nurse Practitioner Family; Visit Provider Internal Medicine
DX: Z53.9 Procedure and treatment not carried out, unspecified reason (principal); Z79.52 Long term (current) use of systemic steroids; Z79.899 Other long term (current) drug therapy; Z51.11 Encounter for antineoplastic chemotherapy; C18.4 Malignant neoplasm of transverse colon; C78.7 Secondary malignant neoplasm of liver and intrahepatic bile duct; D50.9 Iron deficiency anemia, unspecified
CPT/HCPCS: 80053; 81001; 82378; 85025; 96368; 96375; 96413; 96415; 96416; 96417; 96523; 99214; J0640; J1100; J2469; J7050; J7060; J9190; J9263; Q5107

== ENCOUNTER 2023-09-09 10:42 | Oncology outpatient (recurring) (ONCR) | payer MEDICARE, MEDICAID, SELFPAY ==
[2023-09-09 11:03] VITALS: BP 136/83; PULSE 81; RESP 17; TEMP 36.7; O2SAT 96
== END 2023-09-11 23:59 | disposition home or self-care (01) ==
LOC: ONCMED 10:43
PROVIDERS: PCP Nurse Practitioner Family; Visit Provider Internal Medicine
DX: Z45.1 Encounter for adjustment and management of infusion pump; C78.7 Secondary malignant neoplasm of liver and intrahepatic bile duct; Z85.038 Personal history of other malignant neoplasm of large intestine
CPT/HCPCS: 96523

== ENCOUNTER 2023-10-05 13:45 | Oncology outpatient (recurring) (ONCR) | payer MEDICARE, MEDICAID, SELFPAY ==
--- NOTE | 2023-09-28 13:00 | CT_ITS ---
WS: [id number] CT CHEST, ABDOMEN AND PELVIS WITH CONTRAST HISTORY: colon cancer TECHNIQUE: Contiguous 5 mm axial imaging performed through the chest, abdomen and pelvis with IV cont rast, oral contrast has been provided. Coronal and sagittal reformats chest. Coronal and sagittal ref ormats through the abdomen and pelvis. All CT scans at [facility] use at least one of these d ose optimization techniques: automated exposure control; mA and/or kV adjustment per patient size (in cludes targeted exams where dose is matched to clinical indication); or iterative reconstruction. CONTRAST: Omnipaque 350; 100 mL IV. DLP: 1004.49 mGy.cm COMPARISON: 06/14/2023, 06/13/[address]: No new pulmonary mass or nodule. Benign granuloma RIGHT upper lobe. Subpleural scarring is stable anterior LEFT upper lobe. No pericardial or pleural effusions. No mediastinal or hilar lymphad enopathy. There are a few small calcified lymph nodes in the mediastinum which are benign. Mild ather osclerosis aorta. Normal size pulmonary artery. RIGHT subclavian Mediport. No chest wall abnormality. Small hiatal hernia. Abdomen CT: Prior cholecystectomy. Partial hepatic resection. No hepatic mass. Resection site is stab le. No intrahepatic duct dilatation. Normal portal vein. Normal common bile duct. Normal pancreas is granuloma. Normal pancreas. Normal adrenal glands. Too small to characterize cortical hypodensities w ithin each kidney are stable. No obstruction. Mild atherosclerosis aorta. Reidentified is a low-attenuation mass in the RIGHT upper abdomen at the site of the LEFT hepatectomy measuring 4.0 x 4.2 cm. This mass is in the adjacent omental fat and was also present on 06/14/2023 wi th slight decrease in size. This may be related to the surgery and or treated neoplasm. Not typical f or omental necrosis. There is an additional nodule in the anterior abdomen to the LEFT of midline koko suring 1.4 x 2.4 cm which was also described on the prior studies but not changed. There is an elonga dez fluid collection in the mid to LEFT abdomen measuring 10.4 x 4.2 cm. There are small clips or jossy cifications within this collection. This collection abuts the posterior stomach stomach. This fluid c ollection continues to decrease in size since 03/03/2023. Ventral abdominal wall hernias are reidentified. Supraumbilical hernias are noted in the midline. The largest is 4.3 cm and contains small bowel. There is an additional hernia just above the umbilicus c ontaining a loop of nonobstructed small bowel. Prior RIGHT hemicolectomy. Pelvic CT: No free fluid in the pelvis. Prior hysterectomy. No destructive bone lesions identified. CT/CT chest abdpel w/*[id number] IMPRESSION: 1. Status post LEFT hepatectomy. 2. Status post RIGHT hemicolectomy. 3. Reidentified is a soft tissue mass at the LEFT hepatectomy site measuring 4 .0 x 4.2 cm. This mass is been described since 03/03/2023 without increase in s ize. Differential includes a treated metastatic lesion or changes related to th e hepatectomy and fat necrosis. 4. There is an additional soft tissue mass in the anterior LEFT upper abdomen. Treated omental metastatic deposit is most likely. No increase in size. No new deposits. 5. No ascites. 6. No metastatic lesions in the lungs. 7. Prior cholecystectomy and hysterectomy. 8. Reidentified is elongated fluid collection in the LEFT abdomen which contac ts the posterior surface of the stomach. Collection measures 10.4 x 4.2 cm and continues to decrease in size. 9. Supraumbilical abdominal wall hernias containing nonobstructed small bowel.
[2023-09-28] MEDS: iohexol 350 mg/mL 500 mL Btl (per mL) PO (13:29)
[2023-09-28] MEDS: iohexol 350 mg/mL 500 mL Btl (per mL) IV (13:43)
[2023-10-05 13:49] LABS: Basophils # 0.1 10^3/uL (0.0-0.1); Basophils % 1.1 %; Eosinophils # 0.6 10^3/uL (0.0-0.8); Eosinophils % 9.4 %; Lymphocytes # 1.7 10^3/uL (0.8-4.8); Lymphocytes % 25.8 %; Mean Corpuscular HGB Conc 33.2 g/dL (30-55); Mean Corpuscular Hemoglobin 29.9 pg (27-33); Mean Corpuscular Volume 90.3 fl (85-98); Mean Platelet Volume 9.7 fL (7.4-10.4); Monocytes # 0.7 10^3/uL (0.2-0.9); Monocytes % 10.6 %; Neutrophils # 3.48 10^3/uL (1.8-7.7); Neutrophils % 52.8 %; Nucleated Red Blood Cells % 0 %; Platelet Count 180 10^3/cmm (157-399); Red Blood Count 4.21 10^6/uL (3.85-5.65); Red Cell Distribution Width 15.3 % (12.1-15.1); White Blood Count 6.59 10^3/uL (3.29-11.43)
[2023-10-05 14:15] LABS: Carcinoembryonic Antigen 3.6 ng/mL (0.0-4.7)
[2023-10-05 14:26] LABS: Alanine Aminotransferase 34 U/L (0-33); Albumin Level 4.1 g/dL (3.5-5.2); Alkaline Phosphatase 80 U/L (35-105); Anion Gap 16.5 (5-19); Aspartate Amino Transferase 38 U/L (0-32); Blood Urea Nitrogen 17 mg/dL (8-23); Calcium 9.3 mg/dL (8.5-10.5); Carbon Dioxide 24 mmol/L (22-29); Chloride 106 mmol/L (98-107); Globulin 3.2 g/dL (1.3-4.6); Glomerular Filtration Rate 54.8 mL/min (90-130); Glucose 137 mg/dL (65-115); Osmolality Calculated 298 mOsm/kg (285-295); Potassium 4.5 mmol/L (3.5-5.1); Sodium 142 mmol/L (136-145); Total Bilirubin 0.2 mg/dL (0.15-1.2); Total Protein 7.3 g/dL (6.6-8.7)
== END 2023-10-12 23:59 | disposition home or self-care (01) ==
PROVIDERS: PCP Nurse Practitioner Family; Visit Provider Internal Medicine Medical Oncology
DX: Z53.9 Procedure and treatment not carried out, unspecified reason; C78.7 Secondary malignant neoplasm of liver and intrahepatic bile duct; Z87.891 Personal history of nicotine dependence; Z90.49 Acquired absence of other specified parts of digestive tract; Z79.631 Long term (current) use of antimetabolite agent; Z51.11 Encounter for antineoplastic chemotherapy; Z90.710 Acquired absence of both cervix and uterus; Z79.899 Other long term (current) drug therapy; C18.4 Malignant neoplasm of transverse colon; R19.09 Other intra-abdominal and pelvic swelling, mass and lump
CPT/HCPCS: 36415; 71260; 74177; 80053; 82378; 85025; 99214; Q9967

== ENCOUNTER 2024-01-02 13:37 | Oncology outpatient (recurring) (ONCR) | payer MEDICARE, MEDICAID, SELFPAY ==
[2024-01-02 14:09] LABS: Basophils # 0.1 10^3/uL (0.0-0.1); Basophils % 0.7 %; Eosinophils # 1.1 10^3/uL (0.0-0.8); Eosinophils % 15.6 %; Hematocrit 38.9 % (36-47); Lymphocytes # 1.7 10^3/uL (0.8-4.8); Lymphocytes % 25.4 %; Mean Corpuscular HGB Conc 33.9 g/dL (30-55); Mean Corpuscular Hemoglobin 30.2 pg (27-33); Mean Platelet Volume 10.2 fL (7.4-10.4); Monocytes # 0.5 10^3/uL (0.2-0.9); Monocytes % 7.1 %; Neutrophils % 51.1 %; Nucleated Red Blood Cells % 0 %; Platelet Count 201 10^3/cmm (157-399); Red Blood Count 4.37 10^6/uL (3.85-5.65); Red Cell Distribution Width 13.4 % (12.1-15.1); White Blood Count 6.86 10^3/uL (3.29-11.43)
[2024-01-02 14:51] LABS: Alanine Aminotransferase 16 U/L (0-33); Alkaline Phosphatase 66 U/L (35-105); Anion Gap 12.8 (5-19); Aspartate Amino Transferase 18 U/L (0-32); Blood Urea Nitrogen 16 mg/dL (8-23); Calcium 8.5 mg/dL (8.5-10.5); Carbon Dioxide 26 mmol/L (22-29); Chloride 100 mmol/L (98-107); Glomerular Filtration Rate 61.9 mL/min (90-130); Glucose 226 mg/dL (65-115); Osmolality Calculated 288 mOsm/kg (285-295); Potassium 3.8 mmol/L (3.5-5.1); Sodium 135 mmol/L (136-145); Total Bilirubin 0.2 mg/dL (0.15-1.2)
== END 2024-01-12 23:59 | disposition home or self-care (01) ==
PROVIDERS: Nurse Practitioner Family; PCP Nurse Practitioner Family; Visit Provider Internal Medicine Hematology & Oncology
DX: C18.4 Malignant neoplasm of transverse colon; C78.7 Secondary malignant neoplasm of liver and intrahepatic bile duct; D50.9 Iron deficiency anemia, unspecified; Z87.891 Personal history of nicotine dependence; Z79.631 Long term (current) use of antimetabolite agent; Z90.710 Acquired absence of both cervix and uterus; Z79.899 Other long term (current) drug therapy; Z90.49 Acquired absence of other specified parts of digestive tract
CPT/HCPCS: 36591; 80053; 82378; 85025; 99214

== ENCOUNTER → 2024-01-10 10:57 | Outpatient (BNVA) | payer MEDICARE, MEDICAID, SELFPAY | PROVIDERS: PCP Nurse Practitioner Family; Referring Provider Nurse Practitioner Family; Visit Provider Surgery | DX: C78.7 Secondary malignant neoplasm of liver and intrahepatic bile duct; C18.4 Malignant neoplasm of transverse colon; K43.2 Incisional hernia without obstruction or gangrene | CPT/HCPCS: 99214 ==

== ENCOUNTER 2024-01-24 09:22 | Day surgery (SDC) | payer MEDICARE, MEDICAID, SELFPAY ==
--- NOTE | 2024-01-24 09:44 | P.HPUD_ITS ---
Surgery/Procedure H&P Update DATE OF PROCEDURE: January 24, 2024 DATE H&P PERFORMED: 02/09/23 H&P UPDATE INFORMATION: I have reviewed H&P completed within last 30 days, I have examined patient prior to procedure, No changes to prior documentation and H&P is in [facility] EMR on date indicated PLANNED PROCEDURE: Operation Date: 01/24/24 10:35 Proposed Procedures p Colonoscopy- 99849,Z85.038, G0105(Not Applicable) - Nasir Jean MD
[2024-01-24 09:50] VITALS: BP 105/84; PULSE 101; RESP 16; TEMP 36.1; O2SAT 98; BMI 27.5
[2024-01-24] MEDS: sodium chloride 0.9% 1,000 ML 30 ML IV (10:10)
--- NOTE | 2024-01-24 10:10 | P.ANESASSM_ITS ---
Pre-Anesthetic Assessment Height/Weight: Height 1.73 m Weight 82.1 kg Temp Pulse Resp BP Pulse Ox O2 Del Method 97.0 F L 101 H 16 105/84 98 Room Air 01/24/24 09:50 01/24/24 09:50 01/24/24 09:50 01/24/24 09:50 01/24/24 09:50 01/24/24 09:50 Preop Diagnosis: colon cancer Operation Date: 01/24/24 10:35 Proposed Procedures p Colonoscopy- 72212,Z85.038, G0105(Not Applicable) - Nasir Jean MD Familial anesthetic complications: none Was Beta Amalia taken within 24 hours: N/A Was Clonidine taken within 24 hours: N/A Last intake: Intake Last Liquid Date 01/24/24 Last Liquid Time 08:30 Last Solid Date 01/22/24 Last Solid Time 19:00 Social No alcohol and No tobacco Exam alert, oriented x 3, clear to auscultation bilaterally and regular rate & rhythm Airway Submandibular: within normal limits Cervical ROM: within normal limits Mallampati: Class II Dentition: false History/ROS No significant history except as noted and No significant complaints Pulmonary None reported CV/HEM Hypertension None reported Hepatic cancer in liver GI None reported Metabolic Diabetes Mellitus [facility] None reported Neuropsych Anxiety and Depression Anesthetic Plan ASA status: 3 Anesthesia: MAC Risk of > 500 ml blood loss (7ml/kg in children): No Other Pertinent Information Primary Colon Cancer Medications/Allergies Home Medications Medication Instructions Recorded Confirmed Last Taken Type amlodipine 5 mg tablet 5 mg PO DAILY 11/05/20 01/18/24 01/23/24 History atorvastatin 10 mg tablet 10 mg PO DAILY 11/05/20 01/18/24 01/23/24 History hydrochlorothiazide 25 mg tablet 25 mg PO DAILY 11/05/20 01/18/24 01/23/24 History ketoconazole 2 % shampoo 1 applic topical .2 x weekly #120 11/05/20 01/24/24 1 Year Ago Rx mL ~01/23/23 levothyroxine 75 mcg capsule 75 mcg PO DAILY 11/05/20 01/18/24 01/23/24 History lisinopril 40 mg tablet 40 mg PO DAILY 11/05/20 01/18/24 01/23/24 History montelukast 10 mg tablet 10 mg PO DAILY 11/05/20 01/18/24 01/23/24 History mupirocin calcium 2 % topical cream 1 applic topical BID PRN open wound 11/05/20 01/24/24 3 Weeks Ago History ~01/03/24 solifenacin 10 mg tablet (Vesicare) 10 mg PO DAILY 11/05/20 01/18/24 01/23/24 History triamcinolone acetonide 0.1 % 1 applic topical DAILY PRN Rash 11/05/20 01/24/24 02/24/23 History topical cream albuterol sulfate 90 mcg/actuation 2 puff inhalation QID PRN 01/12/21 01/24/24 3 Months Ago History aerosol inhaler Shortness Of Breath ~10/24/23 alendronate 35 mg tablet 35 mg PO .WEEKLY 01/12/21 01/24/24 02/11/23 History aspirin 81 mg tablet,delayed 81 mg PO DAILY 01/12/21 01/18/24 01/23/24 History release cetirizine 10 mg tablet (Zyrtec) 10 mg PO DAILY 01/12/21 01/18/24 01/23/24 History cholecalciferol (vitamin D3) 50 50 mcg PO DAILY 01/12/21 01/18/24 01/23/24 History mcg (2,000 unit) capsule (Vitamin D3) coenzyme Q10 100 mg capsule 100 mg PO DAILY 01/12/21 01/18/24 01/23/24 History (CoQ-10) exenatide microspheres 2 mg/0.85 2 mg SUBCUT DIRECTED 01/12/21 01/24/24 02/11/23 History mL subcutaneous auto-injector (Byparveen Schmitz) folic acid 0.8 mg capsule 0.8 mg PO DAILY 01/12/21 01/18/24 01/23/24 History multivitamin 1 cap PO BEDTIME 01/12/21 01/18/24 01/23/24 History omega-3 fatty acids 2,000 mg PO DAILY 01/12/21 01/24/24 02/24/23 History potassium 99 mg tablet 99 mg PO DAILY 01/12/21 01/18/24 01/23/24 History Freestyle Kit Sensor 02/15/23 01/10/24 Unknown History fluticasone propionate 50 1 spray intranasal BID PRN 02/15/23 01/24/24 02/11/23 History mcg/actuation nasal Congestion spray,suspension (Allergy Relief (fluticasone)) omeprazole 20 mg capsule,delayed 40 mg PO BID 02/15/23 01/18/24 01/23/24 History release sitagliptin phosphate 25 mg tablet 25 mg PO DAILY 02/15/23 01/18/24 01/23/24 History (Januvia) insulin glargine 100 unit/mL (3 14 unit SUBCUT BID 03/02/23 01/18/24 01/18/24 History mL) subcutaneous pen (Lantus Solostar U-100 Insulin) lorazepam 1 mg tablet 0.5 - 1 mg (0.5 - 1 x 1 mg) PO Q6H 03/03/23 01/24/24 1 Week Ago Rx PRN severe nausea/vomiting #30 tabs ~01/17/24 cranberry fruit concentrate 250 mg 250 mg PO DAILY 03/23/23 01/18/24 01/23/24 History chewable tablet (Azo Cranberry) lidocaine HCl 2 % mucosal solution 1 applic mucous membrane TID PRN 04/13/23 01/24/24 2 Months Ago Rx (Lidocaine Viscous) pain #100 mL ~11/24/23 diphenhydramine HCl 25 mg capsule 25 mg PO TID PRN Allergy Symptoms 04/27/23 01/18/24 01/17/24 History (Benadryl) tizanidine 4 mg tablet 4 mg PO Q8H PRN muscle spasticity 04/29/23 01/24/24 2 Weeks Ago Rx 14 days #42 tabs ~01/10/24 nystatin 100,000 unit/mL oral 5 ml PO QID 14 days #280 mL 06/17/23 01/18/24 01/23/24 Rx suspension mupirocin 2 % topical ointment 1 applic topical DAILY PRN open 08/03/23 01/24/24 3 Weeks Ago History wound ~01/03/24 oxycodone 5 mg tablet 5 mg PO Q6H PRN pain 30 days #120 08/16/23 01/24/24 2 Weeks Ago Rx tabs ~01/10/24 lidocaine-prilocaine 2.5 %-2.5 % See Rx Instructions .Route 09/07/23 01/24/24 6 Months Ago Rx topical cream .COMPLEX #30 grams ~07/24/23 venlafaxine 150 mg 150 mg PO DAILY 01/02/24 01/18/24 01/23/24 History capsule,extended release 24 hr ammonium lactate 12 % lotion 1 applic topical DAILY PRN Rash 01/18/24 01/24/24 3 Weeks Ago History ~01/03/24 Allergies Allergy/AdvReac Type Severity Reaction Status Date / Time nitrofurantoin Allergy Severe ALGY-Rash Verified 01/18/24 12:51 [From Macrobid] hydrocodone Allergy Intermediate Unknown Verified 01/18/24 12:51 alprazolam [From Xanax] Allergy Mild BLOATING Verified 01/18/24 12:51 bacitracin Allergy hives Verified 01/18/24 12:51 [From Triple Antibiotic] codeine Allergy esophagus Verified 01/18/24 12:51 muscle spasm morphine Allergy unk Verified 01/18/24 12:51 neomycin Allergy hives Verified 01/18/24 12:51 [From Triple Antibiotic] polymyxin B Allergy hives Verified 01/18/24 12:51 [From Triple Antibiotic] [facility] Anesthesia Medical History GERD (gastroesophageal reflux disease) Hypothyroidism Type 2 diabetes mellitus Anxiety Metastatic colon cancer to liver Hyperlipidemia HTN (hypertension) Depression Surgical History Hx of right hemicolectomy (12/30/22) Extended right hemicolectomy with left hepatectomy Hx of colonoscopy (12/28/22) Hx of hysterectomy Hx laparoscopic cholecystectomy Family History Denies family history of Colon cancer Ovarian cancer Diabetes Heart disease Hyperlipidemia Breast cancer Hypertension Uterine cancer Thyroid disease Stroke Social History Smoking and tobacco/nicotine status: former use of tobacco/nicotine Quit status (tobacco/nicotine): has quit using Year quit tobacco: 2002 Former quit date comment: smoked 30 years Data Anesthesia Cardiac Studies: No Data to Display
[2024-01-24 10:44] VITALS: BP 89/56; PULSE 76; RESP 16; TEMP 36.2; O2SAT 95
[2024-01-24 10:54] VITALS: BP 106/67; PULSE 78; RESP 16; O2SAT 97
--- NOTE | 2024-01-24 11:15 | ANE.PACU2 ---
Inpatient post-anesthesia follow up: Airway intact: Yes Vital signs: Temperature 97.1 F Pulse Rate 78 Respiratory Rate 16 Blood Pressure 106/67 Pulse Oximetry 97 Oxygen Delivery Me thod Room Air Oxygen Flow Rate Fraction of Inspir ed Oxygen Hydration adequate: Yes Nausea and vomiting: No Pain level: 1 Mental status: Baseline
== END 2024-01-24 11:15 | disposition home or self-care (01) ==
PROVIDERS: PCP Nurse Practitioner Family; Visit Provider Surgery
PROC: 0DJD8ZZ Inspection of Lower Intestinal Tract, Via Natural or Artificial Opening Endoscopic (ICD-10-PCS; CPT 45378; principal; 2024-01-24 10:35)
DX: Z12.11 Encounter for screening for malignant neoplasm of colon (principal); Z85.038 Personal history of other malignant neoplasm of large intestine; I10 Essential (primary) hypertension; E11.9 Type 2 diabetes mellitus without complications; F41.9 Anxiety disorder, unspecified; F32.A Depression, unspecified; K21.9 Gastro-esophageal reflux disease without esophagitis; E03.9 Hypothyroidism, unspecified; Z87.891 Personal history of nicotine dependence
CPT/HCPCS: G0121; J2704; J7030

== ENCOUNTER 2024-08-09 14:52 | Oncology outpatient (recurring) (ONCR) | payer OTHER, MEDICAID, SELFPAY ==
[2024-08-09 15:14] LABS: Basophils # 0.1 10^3/uL (0.0-0.1); Basophils % 0.9 %; Eosinophils # 0.3 10^3/uL (0.0-0.8); Eosinophils % 4.1 %; Hematocrit 40.4 % (36-47); Lymphocytes # 1.9 10^3/uL (0.8-4.8); Mean Corpuscular HGB Conc 33.2 g/dL (30-55); Mean Corpuscular Hemoglobin 28.2 pg (27-33); Mean Corpuscular Volume 84.9 fl (85-98); Mean Platelet Volume 10.2 fL (7.4-10.4); Monocytes # 0.4 10^3/uL (0.2-0.9); Monocytes % 6.4 %; Neutrophils # 4.21 10^3/uL (1.8-7.7); Neutrophils % 61.3 %; Nucleated Red Blood Cells % 0 %; Platelet Count 211 10^3/cmm (157-399); Red Blood Count 4.76 10^6/uL (3.85-5.65); Red Cell Distribution Width 13.2 % (12.1-15.1); White Blood Count 6.86 10^3/uL (3.29-11.43)
[2024-08-09 15:58] LABS: Alanine Aminotransferase 24 U/L (0-33); Albumin Level 4.3 g/dL (3.5-5.2); Alkaline Phosphatase 67 U/L (35-105); Anion Gap 16.4 (5-19); Aspartate Amino Transferase 21 U/L (0-32); Blood Urea Nitrogen 14 mg/dL (8-23); Calcium 9.2 mg/dL (8.5-10.5); Carbon Dioxide 26 mmol/L (22-29); Chloride 99 mmol/L (98-107); Creatinine Clr Calc Pharmacy 61.2215; Globulin 3.5 g/dL (1.3-4.6); Glomerular Filtration Rate 54.8 mL/min (90-130); Glucose 168 mg/dL (65-115); Osmolality Calculated 290 mOsm/kg (285-295); Potassium 3.4 mmol/L (3.5-5.1); Sodium 138 mmol/L (136-145); Total Bilirubin 0.2 mg/dL (0.15-1.2); Total Protein 7.8 g/dL (6.6-8.7)
== END 2024-08-11 23:59 | disposition home or self-care (01) ==
PROVIDERS: PCP Nurse Practitioner Family; Visit Provider Internal Medicine
DX: D50.9 Iron deficiency anemia, unspecified (principal); Z85.038 Personal history of other malignant neoplasm of large intestine; Z87.891 Personal history of nicotine dependence; Z90.49 Acquired absence of other specified parts of digestive tract; Z92.21 Personal history of antineoplastic chemotherapy; K43.2 Incisional hernia without obstruction or gangrene; M25.50 Pain in unspecified joint; M54.9 Dorsalgia, unspecified; Z79.891 Long term (current) use of opiate analgesic; Z08 Encounter for follow-up examination after completed treatment for malignant neoplasm
CPT/HCPCS: 80053; 82378; 85025; 96523; 99213

== ENCOUNTER 2024-11-08 10:54 | Oncology outpatient (recurring) (ONCR) | payer OTHER, MEDICAID, SELFPAY ==
[2024-11-08 11:16] LABS: Hematocrit 42.4 % (36-47); Hemoglobin 14.20 g/dL (11.27-16.99); Mean Corpuscular HGB Conc 33.5 g/dL (30-55); Mean Corpuscular Hemoglobin 28.3 pg (27-33); Mean Corpuscular Volume 84.6 fl (85-98); Nucleated Red Blood Cells % 0 %; Platelet Count 216 10^3/cmm (157-399); Red Blood Count 5.01 10^6/uL (3.85-5.65); White Blood Count 5.94 10^3/uL (3.29-11.43)
[2024-11-08 11:37] LABS: Carcinoembryonic Antigen 3.2 ng/mL (0.0-4.7)
[2024-11-08 11:48] LABS: Alanine Aminotransferase 25 U/L (0-33); Albumin Level 4.3 g/dL (3.5-5.2); Alkaline Phosphatase 73 U/L (35-105); Anion Gap 17.8 (5-19); Aspartate Amino Transferase 19 U/L (0-32); Blood Urea Nitrogen 15 mg/dL (8-23); Calcium 9.6 mg/dL (8.5-10.5); Carbon Dioxide 25 mmol/L (22-29); Chloride 98 mmol/L (98-107); Globulin 3.4 g/dL (1.3-4.6); Glucose 215 mg/dL (65-115); Osmolality Calculated 291 mOsm/kg (285-295); Potassium 3.8 mmol/L (3.5-5.1); Sodium 137 mmol/L (136-145); Total Protein 7.7 g/dL (6.6-8.7)
[2024-11-08 11:53] LABS: Creatinine Clr Calc Pharmacy 60.2453
== END 2024-11-11 23:59 | disposition home or self-care (01) ==
PROVIDERS: Internal Medicine; PCP Nurse Practitioner Family; Visit Provider Nurse Practitioner
DX: Z45.2 Encounter for adjustment and management of vascular access device (principal); Z95.828 Presence of other vascular implants and grafts; C18.9 Malignant neoplasm of colon, unspecified; D50.9 Iron deficiency anemia, unspecified; C78.7 Secondary malignant neoplasm of liver and intrahepatic bile duct
CPT/HCPCS: 36415; 80053; 82378; 85025; 96523

== ENCOUNTER 2025-01-22 16:33 | Outpatient (CLI) | payer OTHER, MEDICAID, SELFPAY ==
--- NOTE | 2025-01-22 16:41 | CT_ITS ---
WS: [id number] LDCT LUNG CANCER SCREENING HISTORY: NICOTINE DEPENDENCE, CIGARETTES TECHNIQUE: Axial imaging performed from the apices to 1 cm below the costophrenic angles. Coronal and sagittal reformats are submitted with axial MIP series. All CT scans at [facility] use at least one of these dose optimization techniques: automated exposure control; mA and/or kV adjustment per patient size (includes targeted exams where dose is matched to clinical indication); or iterative reconstruction. DLP: 82.30 mGy.cm DIvol: Mean CTDIvol: 1.80 (mGy) COMPARISON: 09/28/[address] Diagnostic quality: Satisfactory Lungs: Hyperexpanded lungs with centrilobular emphysema. New subpleural nodule LEFT upper lobe slightly lobulated measuring 1.0 x 1.4 x 1.5 cm. No additional mass or nodule identified. No pneumonia. No endobronchial lesions. Heart: Normal size heart with no pericardial effusion.. Other findings: Calcified mediastinal and hilar lymph nodes. Mild atherosclerosis aorta. Normal size pulmonary artery. Mediport in the RIGHT upper chest wall. No hiatal hernia. Reidentified is a hepatectomy site. In the hepatectomy site is a 3.6 x 2.9 cm mass which has been previously described over multiple years with no progression. Supraumbilical abdominal wall hernia. CT/CT lung screening [id number] IMPRESSION: LUNG-RADS: 4B-Suspicious FOLLOW UP: PET/CT recommended OTHER FINDINGS (S MODIFIER): None. New LEFT upper lobe lobulated lung nodule. This may be a primary or metastatic site. PET/CT recommended at this time.
== END 2025-01-22 16:34 | disposition home or self-care (01) ==
LOC: RAD 16:34
PROVIDERS: PCP Nurse Practitioner Family; Visit Provider Nurse Practitioner Family
DX: Z12.2 Encounter for screening for malignant neoplasm of respiratory organs (principal); F17.210 Nicotine dependence, cigarettes, uncomplicated; J43.2 Centrilobular emphysema; R91.1 Solitary pulmonary nodule; I70.0 Atherosclerosis of aorta; R93.2 Abnormal findings on diagnostic imaging of liver and biliary tract; K42.9 Umbilical hernia without obstruction or gangrene
CPT/HCPCS: 71271

== ENCOUNTER 2025-01-31 12:10 | Outpatient (CLI) | payer OTHER, MEDICAID, SELFPAY ==
--- NOTE | 2025-01-31 12:20 | MM_ITS ---
WS: [id number] BILATERAL SCREENING DIGITAL TOMOSYNTHESIS MAMMOGRAM WITH CAD HISTORY: SCREENING COMPARISON: 12/06/2022, 06/06/2020, 04/13/2017 Bilateral CC and MLO views with tomosynthesis and synthetic mammography submitted. Computer aided detection analyzed. Breast composition: The breasts are almost entirely fatty. No suspicious masses, microcalcifications or architectural distortion. MM/MM scr BI tomosynthesis [id number] IMPRESSION: BI-RADS: 1 - Negative. FOLLOW UP: 1 Year Follow-up
== END 2025-01-31 12:11 | disposition home or self-care (01) ==
LOC: MOBLMAM 12:12
PROVIDERS: PCP Nurse Practitioner Family; Visit Provider Nurse Practitioner Family
DX: Z12.31 Encounter for screening mammogram for malignant neoplasm of breast (principal); R92.313 Mammographic fatty tissue density, bilateral breasts
CPT/HCPCS: 77063; 77067

== ENCOUNTER 2025-02-04 13:53 | Outpatient (CLI) | payer OTHER, MEDICAID, SELFPAY ==
--- NOTE | 2025-02-04 14:02 | XRR_ITS ---
PROCEDURE INFORMATION: Exam: XR Left Shoulder Exam date and time: 02/04/2025 2:24 PM Age: 69 years old Clinical indication: Injury or trauma; Fall; Blunt trauma (contusions or hematomas); Shoulder; Left; Injury date: 1 month ago; HX of colon cancer; Additional info: Pain in left shoulder TECHNIQUE: Imaging protocol: Radiologic exam of the left shoulder. Views: 2 or more views. COMPARISON: CT lung screening [id number] 01/22/2025 4:46 PM FINDINGS: Bones/joints: No acute displaced fracture or dislocation. Joint spaces are preserved. Lungs: Left upper lung nodule, better evaluated on prior chest CT 01/22/2025. Soft tissues: Unremarkable. XR/XR shoulder LT min 2V* [id number] IMPRESSION: No acute findings.
== END 2025-02-04 13:54 | disposition home or self-care (01) ==
PROVIDERS: PCP Nurse Practitioner Family; Visit Provider Nurse Practitioner Family
DX: M25.512 Pain in left shoulder (principal); S40.012D Contusion of left shoulder, subsequent encounter; W19.XXXD Unspecified fall, subsequent encounter; Z85.038 Personal history of other malignant neoplasm of large intestine
CPT/HCPCS: 73030

== ENCOUNTER 2025-02-06 10:37 | Oncology outpatient (recurring) (ONCR) | payer MEDICAID, MEDICARE, SELFPAY ==
[2025-02-06 11:06] LABS: Hematocrit 38.0 % (36-47); Hemoglobin 12.70 g/dL (11.27-16.99); Mean Corpuscular HGB Conc 33.4 g/dL (30-55); Mean Corpuscular Hemoglobin 27.9 pg (27-33); Mean Corpuscular Volume 83.5 fl (85-98); Nucleated Red Blood Cells % 0 %; Platelet Count 214 10^3/cmm (157-399); Red Blood Count 4.55 10^6/uL (3.85-5.65); White Blood Count 7.45 10^3/uL (3.29-11.43)
[2025-02-06 11:20] LABS: Alanine Aminotransferase 40 U/L (0-33); Albumin Level 4.1 g/dL (3.5-5.2); Alkaline Phosphatase 66 U/L (35-105); Anion Gap 18.1 (5-19); Aspartate Amino Transferase 34 U/L (0-32); Blood Urea Nitrogen 18 mg/dL (8-23); Calcium 9.2 mg/dL (8.5-10.5); Carbon Dioxide 24 mmol/L (22-29); Chloride 103 mmol/L (98-107); Globulin 3.1 g/dL (1.3-4.6); Glucose 241 mg/dL (65-115); Osmolality Calculated 302 mOsm/kg (285-295); Potassium 4.1 mmol/L (3.5-5.1); Sodium 141 mmol/L (136-145); Total Protein 7.2 g/dL (6.6-8.7)
== END 2025-02-10 23:59 | disposition home or self-care (01) ==
PROVIDERS: PCP Nurse Practitioner Family; Visit Provider Internal Medicine
DX: Z08 Encounter for follow-up examination after completed treatment for malignant neoplasm (principal); Z85.038 Personal history of other malignant neoplasm of large intestine; Z87.891 Personal history of nicotine dependence; Z92.21 Personal history of antineoplastic chemotherapy; K43.9 Ventral hernia without obstruction or gangrene; G89.29 Other chronic pain; M54.9 Dorsalgia, unspecified; R91.1 Solitary pulmonary nodule
CPT/HCPCS: 36591; 80053; 85025; 99213

== ENCOUNTER 2025-03-13 10:45 | Oncology outpatient (recurring) (ONCR) | payer MEDICARE, MEDICAID, SELFPAY ==
--- NOTE | 2025-02-15 13:30 | PETR_ITS ---
PROCEDURE INFORMATION: Exam: PET/CT Skull Base to Mid-thigh Exam date and time: 02/15/2025 2:47 PM Age: 69 years old Clinical indication: Condition or disease; Primary cancer: Lung cancer; Prior surgery; Surgery date: 6+ months; Surgery type: Port; HX of colon and liver cancer LABS AND CLINICAL REPORTS: Glucose: 194 mg/dl Treatment strategy for malignancy (PET staging): Initial Staging (PI) TECHNIQUE: Imaging protocol: Following at least four-hour fasting and following the injection of radiopharmaceutical, low dose CT images were obtained. Then, PET images were obtained. Attenuation corrected images were constructed using the CT scan. Fused images of PET and CT were reviewed. The standardized uptake values (SUV) reported below are maximum values within a region of interest, expressed in gm/ml. Exam includes orbital meatal line to mid-thigh. SUV normalization method: BodyWeight Radiopharmaceutical: 11.1 mCi F-18 FDG (Fluorodeoxyglucose), IV. Time of imaging post radiopharmaceutical administration: 52 minutes Injection site: RIGHT AC COMPARISON: 1. CT lung screening [id number] 01/22/2025 4:[address] abdomen/pelvis dated 09/28/2023. FINDINGS: Tubes, catheters and devices: Right chest wall chemo port with tip at the right atrium. Brain: Visualized brain has normal physiologic uptake. Pharynx: No abnormal uptake. Larynx: No abnormal uptake. Lungs, pleura and trachea: FDG avid ill-defined left upper lobe nodule, maximum SUV 16.0. The nodule appears increased in size compared to the prior study, now measuring 2.1 cm, previously 1.5 cm on the prior study and a 4 mm area of scarring and a prior study from 2023. Heart: Normal physiologic uptake. Mediastinal space: No abnormal uptake. Liver: Status post left hepatectomy. No increased FDG uptake along the hepatectomy margins. Gallbladder and biliary ducts: No abnormal uptake. Pancreas: No abnormal uptake. Spleen: No abnormal uptake. Coarse calcification in the spleen, likely sequela of prior granulomatous organism exposure. Adrenal glands: No abnormal uptake. Kidneys and ureters: Normal physiologic uptake. Stomach and bowel: No abnormal uptake. Anastomotic sutures along the left hemicolon. No abnormal soft tissue or FDG uptake. Intraperitoneal and retroperitoneal spaces: 3.9 x 3.1 cm soft tissue structure adjacent to the left hepatectomy site, increased in density since and decreased in size. There is no significant internal uptake. Previously noted soft tissue mass in the left upper abdomen noted on 2023 has since resolved. Vasculature: No abnormal uptake. Lymph nodes: Enlarged, FDG avid prevascular lymph node, maximum SUV 4.6. This lymph node now measures 1.5 cm in short axis, increased from the prior study where it measured 0.9 cm. Skeleton: No abnormal uptake in the visualized axial and appendicular skeleton. Soft tissues: No abnormal uptake in the visualized head, neck, chest, abdomen, pelvis, and extremities. Moderate sized supraumbilical ventral hernia containing fat and loops of nonobstructed bowel. METRICS: Mediastinal blood pool: Mean SUV of 2.5 Liver uptake: Mean SUV of 3.5 PET/PET skull to thigh INIT [id number] IMPRESSION: 1. FDG avid 2.1 cm nodule in the left upper lobe, increased in size from the prior study and suspicious for either primary malignancy or metastatic disease. Tissue correlation is recommended. 2. FDG avid prevascular lymph node, also increased in size since the prior study and suspicious for metastatic lymphadenopathy. 3. Further decrease in size of a now 3.1 cm soft tissue lesion adjacent to the left hepatectomy site. There is no internal uptake. This likely represent sequela of chronic/healed fat necrosis. 4. No functional or anatomic evidence of metastatic disease within the head or neck, abdomen or pelvis.
[2025-03-13 10:50] LABS: Hematocrit 40.6 % (36-47); Hemoglobin 13.50 g/dL (11.27-16.99); Mean Corpuscular HGB Conc 33.3 g/dL (30-55); Mean Corpuscular Hemoglobin 27.6 pg (27-33); Mean Corpuscular Volume 82.9 fl (85-98); Nucleated Red Blood Cells % 0 %; Platelet Count 207 10^3/cmm (157-399); Red Blood Count 4.90 10^6/uL (3.85-5.65); White Blood Count 7.44 10^3/uL (3.29-11.43)
[2025-03-13 11:21] LABS: Carcinoembryonic Antigen 3.3 ng/mL (0.0-4.7)
[2025-03-13 11:32] LABS: Alanine Aminotransferase 42 U/L (0-33); Albumin Level 4.3 g/dL (3.5-5.2); Alkaline Phosphatase 74 U/L (35-105); Anion Gap 18.3 (5-19); Aspartate Amino Transferase 43 U/L (0-32); Blood Urea Nitrogen 15 mg/dL (8-23); Calcium 9.3 mg/dL (8.5-10.5); Carbon Dioxide 24 mmol/L (22-29); Chloride 99 mmol/L (98-107); Globulin 2.9 g/dL (1.3-4.6); Glucose 244 mg/dL (65-115); Osmolality Calculated 293 mOsm/kg (285-295); Potassium 4.3 mmol/L (3.5-5.1); Sodium 137 mmol/L (136-145); Total Protein 7.2 g/dL (6.6-8.7)
== END 2025-03-13 23:59 | disposition home or self-care (01) ==
PROVIDERS: PCP Nurse Practitioner Family; Visit Provider Internal Medicine
DX: Z53.9 Procedure and treatment not carried out, unspecified reason; Z08 Encounter for follow-up examination after completed treatment for malignant neoplasm; Z85.038 Personal history of other malignant neoplasm of large intestine; Z87.891 Personal history of nicotine dependence; Z92.21 Personal history of antineoplastic chemotherapy; K43.2 Incisional hernia without obstruction or gangrene; G89.29 Other chronic pain; M54.9 Dorsalgia, unspecified; R91.1 Solitary pulmonary nodule; Z95.828 Presence of other vascular implants and grafts; M25.50 Pain in unspecified joint
CPT/HCPCS: 78815; 80053; 82378; 85025; 99213; A9552